=== PATIENT | male | born 1960 | race Caucasian/White ===

== ENCOUNTER 2023-05-27 10:14 | Outpatient (CLI) | payer BC, SELFPAY ==
[2023-05-27 10:43] LABS: Basophils Absolute Auto 0.1 K/mm3 (0.0-0.1); Basophils Percent Auto 0.8 % (0.2-1.2); Eosinophils Absolute Auto 0.6 K/mm3 (0-0.3); Eosinophils Percent Auto 9.3 % (0-4.4); Hematocrit 41.5 % (42.0-52.0); Hemoglobin 14.4 g/dL (14.0-18.0); Immature Granulocyte Absolute 0.02 K/mm3 (0.00-0.031); Immature Granulocyte Percent A 0.3 % (0-0.5); Lymphocytes Absolute Auto 1.99 K/mm3 (0.9-3.2); Lymphocytes Percent Auto 30.2 % (18.3-44.2); Mean Corpuscular HGB Conc 34.7 g/dl (32-36); Mean Corpuscular Hemoglobin 30.7 pg (26-34); Mean Corpuscular Volume 88.5 fl (80-100); Mean Platelet Volume 8.8 fl (7.4-10.4); Monocytes Absolute Auto 0.6 K/mm3 (0.1-0.6); Monocytes Percent Auto 9.4 % (2.6-8.5); Neutrophils Absolute Auto 3.3 K/mm3 (1.3-6.7); Platelet Count Result 257 k/mm3 (150-375); Red Blood Count 4.69 M/mm3 (4.6-6.20); Red Cell Distribution Width 12.6 % (11.5-14.5); White Blood Count 6.6 K/mm3 (4.5-10.0)
[2023-05-27 10:52] LABS: Alanine Aminotransferase 44 U/L (6-50); Albumin Level 4.2 g/dL (3.5-5.1); Alkaline Phosphatase 57 U/L (38-126); Anion Gap 7 mmol/L (8-16); Aspartate Amino Transferase 35 U/L (17-59); Bilirubin,Total 0.6 mg/dL (0.2-1.3); Blood Urea Nitrogen 15 mg/dL (9-20); Calcium 9.2 mg/dL (8.4-10.2); Carbon Dioxide 28 mmol/L (22-30); Chloride 106 mmol/L (98-107); Cholesterol 147 mg/dL (0-200); Estimated Glomerular Filt Rate > 60; Glucose 93 mg/dL (65-110); HDL Direct 42 mg/dL; Magnesium 1.7 mg/dL (1.6-2.3); Potassium 4.1 mmol/L (3.4-5.0); Sodium 141 mmol/L (137-145); Triglycerides 134 mg/dL (<150)
[2023-05-27 11:03] LABS: LDL Cholesterol Direct 77 mg/dL
[2023-05-27 11:12] LABS: Free T4 Free Thyroxine 0.89 ng/mL (0.78-2.19)
[2023-05-27 11:22] LABS: Thyroid Stimulating Hormone 0.636 uIU/mL (0.465-4.680)
== END 2023-05-27 10:15 | disposition home or self-care (01) ==
LOC: ANHLAB 10:23
PROVIDERS: PCP Internal Medicine; Visit Provider Internal Medicine
DX: E78.00 Pure hypercholesterolemia, unspecified (principal); K21.9 Gastro-esophageal reflux disease without esophagitis; I10 Essential (primary) hypertension
CPT/HCPCS: 36415; 80053; 80061; 82607; 83735; 84439; 84443; 85025

== ENCOUNTER 2023-11-24 10:05 | Outpatient (CLI) | payer BC, SELFPAY ==
[2023-11-24 11:15] LABS: Basophils Percent Auto 0.5 % (0.2-1.2); Eosinophils Absolute Auto 0.4 K/mm3 (0-0.3); Hematocrit 40.4 % (42.0-52.0); Hemoglobin 14.3 g/dL (14.0-18.0); Immature Granulocyte Absolute 0.01 K/mm3 (0.00-0.031); Immature Granulocyte Percent A 0.2 % (0-0.5); Lymphocytes Percent Auto 30.2 % (18.3-44.2); Mean Corpuscular HGB Conc 35.4 g/dl (32-36); Mean Corpuscular Hemoglobin 30.9 pg (26-34); Mean Corpuscular Volume 87.3 fl (80-100); Mean Platelet Volume 9.1 fl (7.4-10.4); Monocytes Absolute Auto 0.6 K/mm3 (0.1-0.6); Monocytes Percent Auto 9.2 % (2.6-8.5); Neutrophils Absolute Auto 3.4 K/mm3 (1.3-6.7); Neutrophils Percent Auto 53.9 % (45.5-73.1); Platelet Count Result 259 k/mm3 (150-375); Red Blood Count 4.63 M/mm3 (4.6-6.20); Red Cell Distribution Width 12.4 % (11.5-14.5); White Blood Count 6.3 K/mm3 (4.5-10.0)
[2023-11-24 11:25] LABS: Alanine Aminotransferase 31 U/L (6-50); Albumin Level 4.5 g/dL (3.5-5.1); Alkaline Phosphatase 56 U/L (38-126); Anion Gap 9 mmol/L (4-12); Aspartate Amino Transferase 31 U/L (17-59); Bilirubin,Total 0.7 mg/dL (0.2-1.3); Blood Urea Nitrogen 17 mg/dL (9-20); Calcium 9.1 mg/dL (8.4-10.2); Carbon Dioxide 25 mmol/L (22-30); Chloride 107 mmol/L (98-107); Cholesterol 138 mg/dL (0-200); Estimated Glomerular Filt Rate > 60; Glucose 89 mg/dL (65-110); HDL Direct 47 mg/dL; Magnesium 1.9 mg/dL (1.6-2.3); Potassium 3.9 mmol/L (3.4-5.0); Sodium 141 mmol/L (137-145); Triglycerides 136 mg/dL (<150)
[2023-11-24 11:37] LABS: LDL Cholesterol Direct 76 mg/dL
[2023-11-24 11:56] LABS: Prostate Specific Antigen 3.2 ng/mL (< OR = 4.0); Thyroid Stimulating Hormone 0.999 uIU/mL (0.465-4.680)
[2023-11-24 12:05] LABS: Free T4 Free Thyroxine 0.75 ng/mL (0.78-2.19)
== END 2023-11-24 10:06 | disposition home or self-care (01) ==
LOC: ANHLAB 10:08
PROVIDERS: PCP Internal Medicine; Visit Provider Internal Medicine
DX: N42.9 Disorder of prostate, unspecified (principal); E78.00 Pure hypercholesterolemia, unspecified; K21.9 Gastro-esophageal reflux disease without esophagitis; I10 Essential (primary) hypertension
CPT/HCPCS: 36415; 80053; 80061; 82607; 83735; 84153; 84439; 84443; 85025

== ENCOUNTER 2024-10-12 10:26 | Outpatient (CLI) | payer OTHER, SELFPAY ==
--- OUTSIDE RECORDS SUMMARY | 2024-10-12 10:32 | XMS_ITS | Clinical Summary ---
Author Organization [facility] Address [address] [place] [address] Care Team Providers Care Gun Fertil[employer] Name Role Phone Sander Spann MD Primary Care Provider Allergies Active Allergy Reactions Criticality Noted Date Comments Ibuprofen Other (See comments) Low 08/17/2021 Sinus congestion Medications simvastatin (ZOCOR) 40 mg tablet Take 1 tablet (40 mg total) by mouth nightly Active zolpidem (AMBIEN) 10 mg tabletIndicatio ns:Sleep-Onset Insomnia Take 0.5 tablets (5 mg total) by mouth nightly as needed for sleep Active omeprazole (PriLOSEC) 20 mg capsule Take 1 capsule (20 mg total) by mouth daily Active diphenhydrAMINE (BENADRYL) 25 mg capsule Take 1 tablet/capsule (25 mg total) by mouth every 6 (six) hours as needed for allergies Active Breo Ellipta 200-25 mcg/dose diskus inhaler 2 Active LORazepam (ATIVAN) 1 mg tablet Take by mouth 3 (three) times a day as needed 2 Active ipratropium-alb uteroL (DUO-NEB) 0.5-2.5 mg/3 mL nebulizer solution USE 1 VIAL IN NEBULIZER EVERY 4 HOURS NEEDED 2 Active albuterol HFA (PROVENTIL HFA,VENTOLIN HFA,PROAIR HFA) 90 mcg/actuation inhaler Inhale 2 puffs 2 Active melatonin 5 mg tablet 1 tablet (5 mg total) daily Active fexofenadine (NARCISO) 180 mg tablet Take 1 tablet (180 mg total) by mouth daily Active Active Problems Problem Noted Date Diagnosed Date Aortic root dilation Assessment & Plan (08/25/2022 2:40 PM CDT): Incidental finding on stress ECHO 08/2021. ECHO pending from today. His SBP is marginal and on repeat, I have asked that he monitor this at home and notify us of results in 1-2 weeks. We reviewed activity restrictions refraining from activities that increase intrathoracic pressure. Pending ECHO results will plan one year follow up ECHO same day with Dr. Lopez. Surgical History Surgery Date Site/Laterality Comments ANKLE SURGERY Left Tendon SEPTOPLASTY 02/19/2018 - 03/21/2018 COLONOSCOPY UPPER GASTROINTESTINAL ENDOSCOPY WISDOM TOOTH EXTRACTION Medical History Medical History Date Comments Hyperlipidemia Chronic sinus infection Sleep apnea Sleep Study 01/08 18; CPAP it works for me GERD (gastroesophageal reflux disease) Dysphagia Schatzki's ring Asthma Aortic root dilation Family History Medical History Relation Name Comments Cancer Father Hypertension Father Cancer Mother Hypertension Mother Relation Name Status Comments Father Mother Social History Tobacco Use Types Packs/Day Years Used Date Smoking Tobacco: Never Smokeless Tobacco: Never Tobacco Cessation:Counseling Given: Not Answered Alcohol Use Standard Drinks/Week Comments Yes 0 (1 standard drink = 0.6 oz pur e alcohol) rarely AUDIT-C Answer Date Recorded Q1: How often do you have a drink containing alc ohol? 2-3 times a week 02/18/2022 Q2: How many drinks containi ng alcohol do you have on a typical day when you are drinking? 1 or 2 02/18/2022 Frequency of Binge Drinking Not on file 01/22 Sex and Gender Information Value Date Recorded Sex Assigned at Not on file Legal Sex Male 8:24 AM [employer] Gender Identity Not on file Sexual Orientation Not on file Obstetrics History Last Filed Vital Signs Vital Sign Reading Time Taken Comments Blood Pressure 138/86 08/25/2022 2:09 PM CDT Pulse 66 08/25/2022 2:09 PM CDT Temperature 36 C (96.8 F) 02/18/2022 9:20 AM CDT Respiratory Rate 16 02/18/2022 9:40 AM CDT Oxygen Saturation 98% 08/25/2022 2:09 PM CDT Inhaled Oxygen Concentration - - Weight 68.2 kg (150 lb 6.4 oz) 08/25/2022 2:09 P M CDT Height 172.7 cm (5' 8 ) 08/25/2022 2:09 PM CDT Body Mass Index 22.87 08/25/2022 2:09 PM CDT Plan of Treatment Health Maintenance Due Date Last Done Comments Colon Cancer Screening-Colonoscopy 1961 Depression Screening 1960 Hepatitis C Screening 1961 DTaP/Tdap/Td Vaccine (1 - Tdap) 1972 Regular Well Visit/Exam 18-64 08/25/1979 Pneumococcal vaccine <65 (1 of 2 - PCV) 1980 Zoster Vaccine (2 of 2) 06/23/2021 04/28/2021 Covid-19 Vaccine (3 - 2023-2 5 season) 2024 04/16/2021, 07/26/2020 Prostate Cancer Screening-PSA 11/17/2024, 09/17/2022, 12/30/2021, Additional history exists Influenza Vaccine (Season Ended) 2025 01/23/2022, 04/16/2021, 03/06/2020, Additional history exists Hepatitis B Screening Completed 09/09/2015 , 07/06/2015, 03/06/2015 Medical Devices Implanted Type Area Ad Compositor Device Identifier Shelf Expiration Date Model / Serial / Lot Intersect Ent 88057 Propel 4mm 16mm Steroid Release Zip Tie 370 Mcg Mini Implant - [id number] Implanted:Qty: 1 on 04/13/2018 by Martell Daniel MD at [facility] Left: Nose Intersect Ent 07/29/2019 [id number] / / [id number] Intersect Ent 20826 Propel 4mm 16mm Steroid Release Zip Tie 370 Mcg Mini Implant - [id number] Implanted:Qty: 1 on 04/13/2018 by Martell Daniel MD at [facility] Right: Nose Intersect Ent 07/29/2019 [id number] / / [id number] Procedures Procedure Name Priority Date/Time Associated Diagnosis Comments PSA DIAGNOSTIC Routine 11/17/2022 6:26 AM CDT from Last 3 Months or Most Recently Relevant to Health Maintenance Results * PSA diagnostic (11/17/2022 6:26 AM CDT) PSA-Total 2.39 <=5.40 ng/mL [facility] Comment: Interpretive Data AGE SEX REFERENCE INTERVAL 0 minutes-150 years Female None 0 minutes-49 years Male None 50-59 years Male 0-3.90 60-69 years Male 0-5.40 70-79 years Male 0-6.20 80-150 years Male 0-6.20 The [place] PSA Total assay procedure was used. Results from different manufacturers or methods may not be comparable. Serial testing should be performed using the same method. Current interpretive data last revised 21. Blood 11/17/2022 6:26 AM CDT 11/17/2022 7:21 AM CDT us Sander Spann MD LAB BLOOD ORDERABLES F inal Result [facility] [id number] [facility] Department [place] [address] from Last 3 Months or Most Recently Relevant to Health Maintenance Insurance [facility] [employer] Address: [facility] [address] [place] [address] [employer] Address: [facility] [id number] [place] [address] Advance Directives For more information, please contact: [phone] * Full Code (Latest Code Status on File) Date Activated Date Inactivated Comments 02/18/2022 8:06 AM 02/18/2022 2:02 PM Care Teams Gun Fertilizer Relationship Specialty Start Date End Date Sander Spann MD [address] [facility] [address] [place] [address] PCP - General Internal Medicine 06/02/21
--- OUTSIDE RECORDS SUMMARY | 2024-10-12 10:32 | XMS_ITS | Clinical Summary ---
Author Organization [facility] on Address [address] [facility] [place] [address] Phone Care Team Providers Care Labor Service Representative Name Role Phone Sander Spann MD Primary Care Provider [phone] Allergies No known active allergies Medications fluticasone furoate-vilante roL (BREO ELLIPTA) 200-25 mcg/dose Disk with Device INHALE 1 PUFF BY MOUTH DAILY. RINSE MOUTH AFTER USE. 60 Each 5 09/04/2024 4:13 PM CDT 4 Active simvastatin (ZOCOR) 40 mg tablet Take 40 mg by mouth daily at bedtime. Active meclizine (ANTIVERT) 25 mg tablet Take 1 Tablet (25 mg) by mouth every 6 hours as needed for Dizziness. 90 Tablet 1 04/15/2024 7:14 PM CLAM SHUCKER 4 Active ondansetron (ZOFRAN ODT) 4 mg Tablet, Rapid Dissolve Take 1 Tablet (4 mg) by mouth every 8 hours as needed for Nausea/Emesis . Dissolve tablet on top of tongue, then swallow with saliva. 15 Tablet 04/15/2024 7:14 PM CLAM SHUCKER 4 Active meclizine (ANTIVERT) 25 mg tablet Take 1 Tablet (25 mg) by mouth 3 times daily. 30 Tablet 3 06/11/2024 4:22 PM CLAM SHUCKER 5 Active zolpidem (AMBIEN) 10 mg tablet TAKE 1 TABLET BY MOUTH AT BEDTIME 30 Tablet 2 08/06/2024 5:33 PM CDT 5 Active rosuvastatin (CRESTOR) 20 mg tablet Take 1 Tablet (20 mg) by mouth daily at bedtime. 90 Tablet 3 06/17/2024 4:48 PM CLAM SHUCKER 5 Active LORazepam (ATIVAN) 1 mg tablet Take 1 Tablet (1 mg) by mouth 3 times daily as needed for anxiety. 90 Tablet 2 10/04/2024 12:41 PM CDT 5 Active zolpidem (AMBIEN) 10 mg tablet Take 1 Tablet (10 mg) by mouth daily at bedtime. 30 Tablet 2 10/04/2024 12:41 PM CDT 5 Active benzonatate (TESSALON) 200 mg capsule Take 1 Capsule (200 mg) by mouth 3 times daily. 30 Capsule 10/04/2024 12:41 PM CDT 5 Active azithromycin (Zithromax Z-Mick) 250 mg tablet Take 2 Tablets (500 mg) by mouth daily for 1 day, THEN 1 Tablet (250 mg) daily for 4 days. 6 Tablet 10/10/2024 7:10 PM CDT 5 10/16/19 25 Active zolpidem (AMBIEN) 10 mg tablet Take 1 Tablet (10 mg) by mouth daily at bedtime. 30 Tablet 2 09/04/2024 4:13 PM CDT 5 10/05/19 25 Discontinu ed(Reorder ) Active Problems Problem Noted Date Diagnosed Date Vertigo 04/14/2024 Ataxia 04/14/2024 Dyslipidemia 04/14/2024 AAA (abdominal aortic aneurysm) 04/14/2024 Mild intermittent asthma without complication Hypokalemia 04/14/2024 Aneurysm, 5 mm right posterior communicating art shelley 04/14/2024 Encounters Date Type Department Care Team Description 10/03/2024 12:00 PM CDT - 10/03/2024 11:59 PM CDT Hospital Encounter [facility] [address] [place] [address] Babak Valdez, DO Discharge Disposition: Home or Self Care 10/03/2024 9:51 AM CDT Anesthesia Event [facility] [address] [place] [address] Tabitha Jimenez MD 10/03/2024 6:57 AM CDT - 10/03/2024 3:00 PM CDT Hospital Encounter [facility] [address] [place] [address] Babak Valdez, DO [address], [facility], [facility] Follow-up exam Discharge Disposition: Home or Self Care 09/24/2024 External Device Data ST[facility] ABSTRACTION Provider, Abstract 09/24/2024 External Device Data ST[facility] ABSTRACTION Provider, Abstract 09/17/2024 External Device Data STL ABSTRACTION Provider, Abstract 08/20/2024 External Device Data STL ABSTRACTION Provider, Abstract 08/20/2024 External Device Data STL ABSTRACTION Provider, Abstract 08/13/2024 External Device Data STL ABSTRACTION Provider, Abstract from Last 3 Months Family History Medical History Relation Name Comments Hypertension Mother Relation Name Status Comments Mother Social History Tobacco Use Types Packs/Day Years Used Date Smoking Tobacco: Never Smokeless Tobacco: Never Tobacco Cessation:Counseling Given: Not Answered Alcohol Use Standard Drinks/Week Comments Not Currently 0 (1 standard drink = 0.6 oz pur e alcohol) Feeling Safe Answer Date Recorded Are you in a relationship wi th someone who hurts you emotionally and/or physically? No 05/02/2024 Sex and Gender Information Value Date Recorded Sex Assigned at Not on file Legal Sex Male 12:46 PM CDT Gender Identity Not on file Sexual Orientation Not on file Last Filed Vital Signs Vital Sign Reading Time Taken Comments Blood Pressure 147/85 10/03/2024 1:30 PM CDT Pulse 82 10/03/2024 1:30 PM CDT Temperature 36.1 C (96.9 F) 10/03/2024 11:16 AM CDT Respiratory Rate 21 06/07/2024 8:00 AM CLAM SHUCKER Oxygen Saturation 97% 10/03/2024 1:30 PM CDT Inhaled Oxygen Concentration - - Weight 73.1 kg (161 lb 3.2 oz) 10/03/2024 7:09 A M CDT Height 172.7 cm (5' 8 ) 10/03/2024 7:09 AM CDT Body Mass Index 24.51 10/03/2024 7:09 AM CDT Plan of Treatment Health Maintenance Due Date Last Done Comments DTAP/TDAP/TD VACCINES (1 - Tdap) 1980 COLORECTAL SCREENING 2006 Colorectal Cancer Screening 2006 FIT-DNA Q 3 years 2006 FIT/FOBT Q 1 year 2006 Flex Sig/CT Colonography Q 5 years 2006 ZOSTER VACCINE (2 of 2) 06/23/2021 04/28/2021 RSV VACCINE (60+ or ) (1 - Risk 60-74 years 1-dose series) 2021 INFLUENZA VACCINE Completed 02/17/2024, , 04/16/2021 Medical Devices Implanted Type Area Boiler Tester Device Identifier Shelf Expiration Date Model / Serial / Lot Coil-06/06/2024 Implanted:Qty: 1 on 06/06/2024 by Babak Valdez DO Coil Right: Brain 07/20/2027 [id number] / / [id number] Description:[employer] microinte rvention hydroframe 10 embo coil 4mm x 8cm implanted into right ICA on 06/06/2024 Coil-06/06/2024 Implanted:Qty: 1 on 06/06/2024 by Babak Valdez DO Coil Right: Brain 08/20/2027 [id number] / / [id number] Description:TERUMO HYDROSOFT 10 3MM X 6CM COIL IMPLANTED INTO RIGHT ICA ON 06/06/[address]TIM VALDEZ Coil-06/06/2024 Implanted:Qty: 1 on 06/06/2024 by Babak Valdez DO Coil Right: Brain 02/18/2029 [id number] / / [id number] 2 Procedures Procedure Name Priority Date/Time Associated Diagnosis Comments MRA HEAD W WO CONTRAST Routine 10/03/2024 1:03 PM CDT Follow-up exam IR ARTERIOGRAM HEAD Routine 10/03/2024 1 0:51 AM CDT Follow-up exam ME ANES INSERT ENDOTRACHEAL AIRWAY Routine 10/03/2024 10:01 AM CDT BASIC METABOLIC PANEL Stat 10/03/2024 7:17 AM CDT PROTIME-INR Stat 10/03/2024 7:17 AM CDT PTT Stat 10/03/2024 7:17 AM CDT CBC WITH DIFFERENTIAL Stat 10/03/2024 7:17 AM CDT from Last 3 Months Results * MRA HEAD W WO CONTRAST (10/03/2024 1:03 PM CDT) Anatomical Region Laterality Modality Head Magnetic Resonan ce 10/03/2024 1:04 PM CDT Impressions 10/03/2024 8:55 PM CDT IMPRESSION: Redemonstration of coil mass in known right posterior communicating artery aneurysm with near complete obliteration of the aneurysm fundus though there is focal residual opacification of the within the superior aspect of the coil mass within the aneurysm fundus measuring up to approximately 2.3 mm. These findings are in keeping with cerebral angiogram earlier same date. 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 FINDINGS: Redemonstration of coil mass in known right posterior communicating artery aneurysm. Again, there is near complete obliteration of the aneurysm fundus though there is focal residual opacification within of the superior aspect of the coil mass within the aneurysm fundus measuring approximately 2.3 mm AP by 1.9 mm craniocaudal by 1.3 mm transverse. Right Anterior Circulation: The imaged right cervical ICA is tortuous but otherwise patent. The intracranial ICA is widely patent. The proximal right ophthalmic artery is patent. A prominent posterior communicating artery is present with near physiology of the SCHEDULING COORDINATOR. The ICA terminus, M1, MCA bifurcation and distal MCA branches are without appreciable abnormality. The A1, A1-A2 junction and distal WARNER branches are without appreciable abnormality. A small anterior communicating artery is present. Left Anterior Circulation: The imaged left cervical ICA is widely patent. The intracranial ICA is widely patent. The proximal left ophthalmic artery is patent. A moderately sized posterior communicating artery is present. The ICA terminus, M1, MCA bifurcation and distal MCA branches are without appreciable abnormality. The A1, A1-A2 junction and distal WARNER branches are without appreciable abnormality. Posterior Circulation: The left vertebral artery is slightly larger than the right. The imaged extracranial vertebral arteries are widely patent. The intracranial right vertebral artery is widely patent. No appreciable right PICA. Question of a right AICA-PICA complex. The intracranial left vertebral artery is widely patent. The left PICA is patent. The vertebrobasilar confluence, basilar trunk and quadrification are without significant abnormality. The right P1 is small in caliber in keeping with near physiology of the right SCHEDULING COORDINATOR. The SCAs and jinriksha driver are otherwise patent. 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 FINDINGS: Redemonstration of coil mass in known right posterior communicating artery aneurysm. Again, there is near complete obliteration of the aneurysm fundus though there is focal residual opacification within of the superior aspect of the coil mass within the aneurysm fundus measuring approximately 2.3 mm AP by 1.9 mm craniocaudal by 1.3 mm transverse. Right Anterior Circulation: The imaged right cervical ICA is tortuous but otherwise patent. The intracranial ICA is widely patent. The proximal right ophthalmic artery is patent. A prominent posterior communicating artery is present with near physiology of the SCHEDULING COORDINATOR. The ICA terminus, M1, MCA bifurcation and distal MCA branches are without appreciable abnormality. The A1, A1-A2 junction and distal WARNER branches are without appreciable abnormality. A small anterior communicating artery is present. Left Anterior Circulation: The imaged left cervical ICA is widely patent. The intracranial ICA is widely patent. The proximal left ophthalmic artery is patent. A moderately sized posterior communicating artery is present. The ICA terminus, M1, MCA bifurcation and distal MCA branches are without appreciable abnormality. The A1, A1-A2 junction and distal WARNER branches are without appreciable abnormality. Posterior Circulation: The left vertebral artery is slightly larger than the right. The imaged extracranial vertebral arteries are widely patent. The intracranial right vertebral artery is widely patent. No appreciable right PICA. Question of a right AICA-PICA complex. The intracranial left vertebral artery is widely patent. The left PICA is patent. The vertebrobasilar confluence, basilar trunk and quadrification are without significant abnormality. The right P1 is small in caliber in keeping with near physiology of the right SCHEDULING COORDINATOR. The SCAs and jinriksha driver are otherwise patent. IMPRESSION: Redemonstration of coil mass in known right posterior communicating artery aneurysm with near complete obliteration of the aneurysm fundus though there is focal residual opacification of the within the superior aspect of the coil mass within the aneurysm fundus measuring up to approximately 2.3 mm. These findings are in keeping with cerebral angiogram earlier same date. DICTATION LOCATION: Location [address] [place] [address] Babak Valdez DO MR ORDERABLES Final Result * IR ARTERIOGRAM HEAD (10/03/2024 10:51 AM CDT) Anatomical Region Laterality Modality Head X-Ray Angiograph y 10/03/2024 10:5 1 AM CDT Impressions 10/07/2024 6:04 AM CDT IMPRESSION: Near complete obliteration of known right posterior communicating artery aneurysm post coil embolization though with slight interval coil compaction with focal residual opacification of the superior medial aspect of the aneurysm fundus within the coil mass. DICTATION LOCATION: Location [address] [place] [address] Narrative 10/07/2024 6:04 AM CDT DIAGNOSTIC CEREBRAL ANGIOGRAM DATE: 10/03/2024 10:51 AM HISTORY: Mr Doty is a 63 year old that presented in March 2024 with dizziness. On evaluation a 5 mm right posterior communicating artery was discovered. He was referred to us by neurosurgery and ultimately underwent elective coil embolization of his aneurysm on 06/06/2024. He has been doing well. He presents today for routine followup angiography. Cerebral angiogram was discussed with patient and he wishes to proceed. PHYSICIAN: Dr Valdez ANESTHESIA/SEDATION: General endotracheal anesthesia PHYSICIAN SUPERVISED ANESTHESIA TIME: Please refer to anesthesia documentation. ESTIMATED BLOOD LOSS: Less than 10 ml COMPLICATIONS: No immediate ACCESS: Right radial artery HEMOSTASIS: Radial compression band CONTRAST USE: 40 ml of Isovue 300 FLUOROSCOPY TIME: 3.6 minutes REFERENCE AIR KERMA: 231 mGy PROCEDURES: 1. Diagnostic cerebral angiogram DIAGNOSTIC ACCESS DEVICES: Sheath: 5F Radial sheath Diagnostic Catheter: 5 [place] Blake III Diagnostic Wire: 035 Glidewire Microcatheter: None Microwire: None TECHNIQUE: After discussion of the risks, benefits and alternatives of diagnostic cerebral angiography, informed consent was obtained from the patient. Specific risks discussed included but not limited to stroke, , transient and permanent neurological deficits, vascular injury, radiation induced injury, infection, bleeding, and hematoma formation. The patient was then brought to the angiography suite and placed in a supine position. A standard timeout was performed prior to the procedure. After hemodynamic monitoring was established, general endotracheal anesthesia was performed by the anesthesia service. Prior to the procedure, a Barbeau test was performed with continuous pulse oximetry to confirm an intact palmar arch. Sterile prepping and draping of the right wrist for radial access was performed. The right radial artery was evaluated with ultrasound, local anesthesia with 1% lidocaine and accessed via the Seldinger technique with subsequent placement of a 5F 23 cm radial sheath. The sheath was then flushed with heparinized saline and a radial artery cocktail of heparin, verapamil and nitroglycerin. The patient was then systemically anticoagulated with IV heparin. Standard diagnostic catheters and wires were then fluoroscopically advanced for selective catheterization and angiographic study of the following vessels: Right Brachiocephalic Vascular Family: *Right internal carotid artery, AP and lateral projection angiograms, intracranial views and rotational angiography with three-dimensional reconstructions post-processing under concurrent supervision and reviewed at a separate workstation. CLINICAL INDICATIONS FOR POSTPROCESSED 3-D ANGIOGRAMS performed in this study were to better define complex anatomic vascular relationships for treatment planning purposes. COMPARISON STUDY: Cerebral angiogram with intracranial aneurysm treatment 06/06/2024, CTA head and neck 04/14/2024 FINDINGS: Right Internal Carotid Artery Angiography: DSA of the right anterior circulation was performed from a selective right internal carotid artery injection. The images cervical ICA is tortuous but otherwise widely patent. The petrous, cavernous and supraclinoid ICA segments are widely patent. The ophthalmic artery is patent. There are prominent posterior communicating artery with suggestion of near physiology of the right SCHEDULING COORDINATOR. Redemonstration known right posterior communicating artery aneurysm post coil embolization. There complete obliteration of the aneurysm fundus though there has been slight interval coil compaction with residual opacification of the aneurysm fundus at the superior medial aspect measuring approximately 3 mm AP x 2 mm transverse x 1.5 mm craniocaudal. The anterior choroidal artery is patent. The ICA terminus, M1, MCA bifurcation and distal MCA branches are without significant abnormality. The A1, A1-A2 junction and distal WARNER branches are without significant abnormality. Suggestion of a small anterior communicating artery. The capillary and venous phases are without significant abnormality. Venous drainage of the right anterior circulation is predominantly via the right transverse sigmoid sinus. The superior sagittal sinus, right internal cerebral vein and straight sinus are widely patent. There is opacification of a right vein of Rigoberto. Additional opacification of the right sphenoparietal sinus, right cavernous sinus, right pterygoid plexus and right inferior petrosal sinus. The above findings were confirmed on 3-D rotational angiography evaluated at a separate workstation. POST-PROCEDURE: After all imaging was reviewed and felt adequate for evaluation, all catheters were removed from the patient. Heparin was reversed with the appropriate amount of protamine. The sheath was subsequently removed and patent hemostasis was achieved using a radial compression band. The reverse Barbeau test was used to confirm patent hemostasis with continuous pulse oximetry. Dr. Valdez was present for the entire procedure. COMPLICATIONS: No immediate complications. Procedure Note Babak Valdez, DO - 10/07/2024 DIAGNOSTIC CEREBRAL ANGIOGRAM DATE: 10/03/2024 10:51 AM HISTORY: Mr Doty is a 63 year old that presented in March 2024 with dizziness. On evaluation a 5 mm right posterior communicating artery was discovered. He was referred to us by neurosurgery and ultimately underwent elective coil embolization of his aneurysm on 06/06/2024. He has been doing well. He presents today for routine followup angiography. Cerebral angiogram was discussed with patient and he wishes to proceed. PHYSICIAN: Dr Valdez ANESTHESIA/SEDATION: General endotracheal anesthesia PHYSICIAN SUPERVISED ANESTHESIA TIME: Please refer to anesthesia documentation. ESTIMATED BLOOD LOSS: Less than 10 ml COMPLICATIONS: No immediate ACCESS: Right radial artery HEMOSTASIS: Radial compression band CONTRAST USE: 40 ml of Isovue 300 FLUOROSCOPY TIME: 3.6 minutes REFERENCE AIR KERMA: 231 mGy PROCEDURES: 1. Diagnostic cerebral angiogram DIAGNOSTIC ACCESS DEVICES: Sheath: 5F Radial sheath Diagnostic Catheter: 5 [place] Blake III Diagnostic Wire: 035 Glidewire Microcatheter: None Microwire: None TECHNIQUE: After discussion of the risks, benefits and alternatives of diagnostic cerebral angiography, informed consent was obtained from the patient. Specific risks discussed included but not limited to stroke, , transient and permanent neurological deficits, vascular injury, radiation induced injury, infection, bleeding, and hematoma formation. The patient was then brought to the angiography suite and placed in a supine position. A standard timeout was performed prior to the procedure. After hemodynamic monitoring was established, general endotracheal anesthesia was performed by the anesthesia service. Prior to the procedure, a Barbeau test was performed with continuous pulse oximetry to confirm an intact palmar arch. Sterile prepping and draping of the right wrist for radial access was performed. The right radial artery was evaluated with ultrasound, local anesthesia with 1% lidocaine and accessed via the Seldinger technique with subsequent placement of a 5F 23 cm radial sheath. The sheath was then flushed with heparinized saline and a radial artery cocktail of heparin, verapamil and nitroglycerin. The patient was then systemically anticoagulated with IV heparin. Standard diagnostic catheters and wires were then fluoroscopically advanced for selective catheterization and angiographic study of the following vessels: Right Brachiocephalic Vascular Family: *Right internal carotid artery, AP and lateral projection angiograms, intracranial views and rotational angiography with three-dimensional reconstructions post-processing under concurrent supervision and reviewed at a separate workstation. CLINICAL INDICATIONS FOR POSTPROCESSED 3-D ANGIOGRAMS performed in this study were to better define complex anatomic vascular relationships for treatment planning purposes. COMPARISON STUDY: Cerebral angiogram with intracranial aneurysm treatment 06/06/2024, CTA head and neck 04/14/2024 FINDINGS: Right Internal Carotid Artery Angiography: DSA of the right anterior circulation was performed from a selective right internal carotid artery injection. The images cervical ICA is tortuous but otherwise widely patent. The petrous, cavernous and supraclinoid ICA segments are widely patent. The ophthalmic artery is patent. There are prominent posterior communicating artery with suggestion of near physiology of the right SCHEDULING COORDINATOR. Redemonstration known right posterior communicating artery aneurysm post coil embolization. There complete obliteration of the aneurysm fundus though there has been slight interval coil compaction with residual opacification of the aneurysm fundus at the superior medial aspect measuring approximately 3 mm AP x 2 mm transverse x 1.5 mm craniocaudal. The anterior choroidal artery is patent. The ICA terminus, M1, MCA bifurcation and distal MCA branches are without significant abnormality. The A1, A1-A2 junction and distal WARNER branches are without significant abnormality. Suggestion of a small anterior communicating artery. The capillary and venous phases are without significant abnormality. Venous drainage of the right anterior circulation is predominantly via the right transverse sigmoid sinus. The superior sagittal sinus, right internal cerebral vein and straight sinus are widely patent. There is opacification of a right vein of Rigoberto. Additional opacification of the right sphenoparietal sinus, right cavernous sinus, right pterygoid plexus and right inferior petrosal sinus. The above findings were confirmed on 3-D rotational angiography evaluated at a separate workstation. POST-PROCEDURE: After all imaging was reviewed and felt adequate for evaluation, all catheters were removed from the patient. Heparin was reversed with the appropriate amount of protamine. The sheath was subsequently removed and patent hemostasis was achieved using a radial compression band. The reverse Barbeau test was used to confirm patent hemostasis with continuous pulse oximetry. Dr. Valdez was present for the entire procedure. COMPLICATIONS: No immediate complications. IMPRESSION: Near complete obliteration of known right posterior communicating artery aneurysm post coil embolization though with slight interval coil compaction with focal residual opacification of the superior medial aspect of the aneurysm fundus within the coil mass. DICTATION LOCATION: Location 1 [facility] Babak Valdez DO IR ORDERABLES Final Result * ME ANES INSERT ENDOTRACHEAL AIRWAY (10/03/2024 10:01 AM CDT) Narrative Joselin Alvarez AA-C - 10/03/2024 10:01 AM CDT Joselin Alvarez AA-C 10/03/2024 10:15 AM Airway Date/Time: 10/03/2024 10:01 AM Location: OR Plan: routine intubation Patient Identity Confirmed by: Verbally with patient and armband Airway: not difficult Staffing Performed: OPERATIONS LEAD/CAA Authorized by: Haider Leone [employer] Performed by: Joselin Alvarez AA-C Indications and Patient Condition: Indications for Airway Management: Anesthesia Sedation Level: general anesthesia Preoxygenated: yes Patient Position: Sniffing Mask Difficulty Assessment: 1 - vent by mask Plan to extubate at end of case: Yes Final Airway Details: Final Airway Type: Endotracheal airway ETT Cuffed: Yes Cuff Volume (mL): 4 Technique Used for Successful ETT Placement: Direct laryngoscopy Devices/Methods Used in Placement: Curved blade and intubating stylet Blade Type: curved blade Blade Size: 4 Insertion Site: Oral ETT Size (mm): 7.0 Measured from: Teeth ETT to Teeth (cm): 23 Tube secured with: Tape Placement Verified by: auscultation, end tidal CO2 and chest rise Cormack-Lehane Classification: Grade I - full view of glottis Number of Attempts at Approach: 1 Additional Procedure Information: atraumatic and dentition unchanged Additional Comments: Lips and dentition in pre-anesthetic condition [facility] Prepost 8 PROCEDURE/MINOR SURGICAL ORDERAB LES Final Result * (ABNORMAL) CBC WITH DIFFERENTIAL (10/03/2024 7:17 AM CDT) WBC 6.5 4.0 - 9.8 K/uL 10/03/2024 7:38 AM [facility] [employer] [facility] RBC 4.51 4.50 - 5.40 M/uL 10/03/2024 7:38 AM [employer] [facility] HEMOGLOBIN 13.7 13.6 - 16.5 g/dL 10/03/2024 7:38 AM [facility] [employer] [facility] HEMATOCRIT 41.0 40.0 - 48.0 % 10/03/2024 7:38 AM [employer] [facility] MCV 90.9 82.0 - 99.0 fL 10/03/2024 7:38 AM T [employer] [facility] MCH 30.4 27.2 - 32.6 pg 10/03/2024 7:38 AM [employer] [facility] MCHC 33.4 31.5 - 35.5 g/dL 10/03/2024 7:38 AM [employer] [facility] RDW 12.8 11.5 - 14.5 % 10/03/2024 7:38 AM [employer] [facility] RDW-STDEV 42.1 37.1 - 48.7 fL 10/03/2024 7:38 AM CDT [employer] [facility] PLATELETS 266 140 - 350 K/uL 10/03/2024 7:38 AM CDT [employer] [facility] - . [place] MPV 8.8(L) 9.3 - 12.4 fL 10/03/2024 7:38 AM CDT [employer] [facility] - . [facility] NEUTROPHILS 56 % 10/03/2024 7:38 AM CDT [employer] [facility] - . [place] LYMPHOCYTES 30 % 10/03/2024 7:38 AM CDT [employer] [facility] [place] MONOCYTES 9 % 10/03/2024 7:38 AM CDT [employer] [facility] [place] EOSINOPHILS 4 % 10/03/2024 7:38 AM CDT [employer] [facility] - [facility] [place] BASOPHILS 1 % 10/03/2024 7:38 AM CDT [employer] [facility] - . [facility] IMMATURE GRANULOCYTES 0 % 10/03/2024 7:38 AM CDT [employer] [facility] - . [facility] NEUTROPHIL ABSOLUTE 3.66 1.90 - 7.00 K/uL 10/03/2024 7:38 AM CDT [employer] [facility] - . [facility] LYMPHOCYTE ABSOLUTE 1.94 0.70 - 4.50 K/uL 10/03/2024 7:38 AM CDT [employer] [facility] - . [facility] MONOCYTE ABSOLUTE 0.61 0.10 - 1.30 K/uL 10/03/2024 7:38 AM CDT [employer] [facility] - . [place] EOSINOPHIL ABSOLUTE 0.23 0.00 - 0.70 K/uL 10/03/2024 7:38 AM CDT [employer] [facility] - . [place] BASOPHILS ABSOLUTE 0.04 0.00 - 0.20 K/uL 10/03/2024 7:38 AM CDT [employer] [facility] - . [facility] IMMATURE GRANULOCYTES ABSOLUTE 0.02 0.00 - 0.03 K/uL 10/03/2024 7:38 AM T [employer] [facility] Blood Venipuncture / Unknown 10/03/2024 7:17 AM CDT 10/03/2024 7:28 AM CDT Babak Valdez DO HEMATOLOGY ORDERABLES Final Result [facility] - . [place] CLIA# [id number] [address] [place] [address] * PTT (10/03/2024 7:17 AM CDT) PTT 30.3 24.4 - 36.4 seconds 10/03/2024 7:49 AM CDT [facility] [employer] [facility] Comment: PTT Therapeutic Range: Heparin Level PTT (seconds) <0.10 units/mL <55.8 0.10 - 0.30 units/mL 55.8 - 74.3 0.30 - 0.70 units/mL* 74.3 - 111.2* 0.70 - 1.00 units/mL 111.2 - 138.9 *corresponds to therapeutic range for unfractionated heparin Blood Venipuncture / Unknown 10/03/2024 7:17 AM CDT 10/03/2024 7:28 AM CDT Babak Valdez DO HEMATOLOGY ORDERABLES Final Result [facility] [employer] [facility] [id number] [address] [place] [address] * PROTIME-INR (10/03/2024 7:17 AM CDT) PROTIME 13.5 12.7 - 15.1 Seconds 10/03/2024 7:49 AM CDT [facility] [employer] [facility] INR 1.0 0.9 - 1.1 10/03/2024 7:49 AM CDT [facility] [employer] [facility] Blood Venipuncture / Unknown 10/03/2024 7:17 AM CDT 10/03/2024 7:28 AM CDT Narrative [facility] - 10/03/2024 7:49 AM CDT INR Therapeutic Range: Adult: 2.0 - 3.0 for pulmonary embolism or prophylaxis against venous thrombosis or systemic embolization. 2.0 - 3.0 for patients with tissue heart valves. 2.5 - 3.5 for patients with mechanical heart valves or post VT. Pediatric (12 years and under): 1.5 - 3.0 Although the target range in children is not well established, INR values of 1.5 - 3.0 are recommended for most patients. Higher values have been used in children with prosthetic cardiac valves and hereditary clotting disorders. [place] (<3 days) therapeutic ranges have not been established. Babak Valdez DO HEMATOLOGY ORDERABLES Final Result [facility]# [id number] [address] [place] [address] * (ABNORMAL) BASIC METABOLIC PANEL (10/03/2024 7:17 AM CDT) SODIUM 139 136 - 145 mmol/L 10/03/2024 7:57 AM T [facility] POTASSIUM 4.3 3.5 - 5.0 mmol/L 10/03/2024 7:57 AM T [facility] Comment:Hemolysis present. R esult may be falsely elevated. CHLORIDE 106 98 - 107 mmol/L 10/03/2024 7:57 AM T [facility] CO2 21(L) 22 - 29 mmol/L 10/03/2024 7:57 AM T [facility] CALCIUM 9.2 8.6 - 10.2 mg/dL 10/03/2024 7:57 AM CDT [facility] BUN 11 8 - 23 mg/dL 10/03/2024 7:57 AM T [facility] CREATININE 0.89 0.67 - 1.17 mg/dL 10/03/2024 7:57 AM T [facility] GLUCOSE 99 74 - 99 mg/dL 10/03/2024 7:57 AM T [facility] GFR >60 >=60 mL/min/1.7 3 sq meter 10/03/2024 7:57 AM T [facility] Comment:eGFR calculated with 2020 CKD-EPI equation. Vegetarian diet, extremely high or low muscle mass, and may affect results. Cystatin C with Glomerular Filtration Rate is a suitable alternative for these patients. ANION GAP 12 8 - 16 mmol/L 10/03/2024 7:57 AM CDT [facility] Blood Venipuncture / Unknown 10/03/2024 7:17 AM CDT 10/03/2024 7:28 AM CDT us Babak Valdez DO CHEMISTRY ORDERABLES Final R esult [facility] CLIA# [id number] [address] [place] [address] from Last 3 Months Insurance RX [employer] Member Subscriber Plan / Payer (Ef fective for All Dates) Name:Jairo Doty Relation to Subscriber:Self Name:Jairo Doty Payer ID:Not on file Type:Not on file Address: [address] [address] [employer] Advance Directives For more information, please contact: [phone] * Full Code (Latest Code Status on File) Date Activated Date Inactivated Comments 06/06/2024 7:57 AM 06/07/2024 1:14 PM * Full Code Date Activated Date Inactivated Comments 04/14/2024 11:47 PM 04/15/2024 9:25 PM Care Teams Labor Service Representative Relationship Specialty Start Date End Date Sander Spann MD [address] [facility] [address] [place] [address] PCP - General Internal Medicine 06/06/24
--- OUTSIDE RECORDS SUMMARY | 2024-10-12 10:32 | XMS_ITS | Data Portability ---
Author Organization [facility] IP Address [address] [place] [id number] Care Team Providers Care Surveillance Analyst Name Role Phone DAR BETANCOURT Primary Care Provider Assessment No assessment recorded. Plan of Treatment Reminders Order Date Submit Date Provider Last Modified By Organization Details Last Modified Time Details Appointments None record ed. Lab None record ed. Referral None record ed. Procedures None record ed. Surgeries None record ed. Imaging None record ed. Medication Orders None record ed. Patient TargetsNo targets recorded. Patient InstructionsNo instructions recorded. Reason for Referral None Reported. Medical Equipment None Reported. Medications Name Sig Start Date Stop Date Status Note LastModified by Organization Details LastModified Time prednisone 10 mg tablet active Not Available Not Available No t Available cefuroxime axetil 250 mg tablet active Not Available Not Available Not Available ipratropium 0.5 mg-albuterol 3 mg (2.5 mg base)/3 mL nebulization soln active Not Available Not Available Not Available benzonatate 200 mg capsule active Not Available Not Available N ot Available hydrocodone 5 mg-acetaminophe n 325 mg tablet active Not Available Not Availa ble Not Available prednisone 5 mg tablet active Not Available Not Available Not Available promethazine 6.25 mg-codeine 10 mg/5 mL syrup active Not Available Not Available Not Available simvastatin 40 mg tablet active Not Available Not Available No t Available clobetasol 0.05 % topical ointment active Not Available Not Available Not Available cefuroxime axetil 500 mg tablet active Not Available Not Available Not Available levofloxacin 500 mg tablet active Not Available Not Availabl e Not Available zolpidem 10 mg tablet active Not Available Not Available Not Available methylprednisol one 4 mg tablets in a dose pack active Not Available Not Available No t Available fluticasone propionate 50 mcg/actuation nasal spray,suspensio n INHALE 2 PUFF IN EACH NOSTRIL EVERY DAY active Not Available Not Available No t Available Ventolin HFA 90 mcg/actuation aerosol inhaler active Not Available Not Availa ble Not Available Breo Ellipta 200 mcg-25 mcg/dose powder for inhalation active Not Available Not Availab le Not Available Vitals Date Recorded Heart rate Respiratory rate Body temperature Systolic And Diastolic Provider Name and Address Organization Details Last Updated DateTime 09/27/2018 89 /min 18 /min 98.3 [degF] 127/84 mm[Hg] Daphnie SchmidtDANILO [facility] 9 15:26:20 Date Recorded Body weight Heart rate Respiratory rate Body temperature Body mass index (BMI) Body height Systolic And Diastolic Provider Name and Address Organization Details Last Updated DateTime 9 [address]9828.6 1 g 73 /min 18 /min 97.2 [degF] 25.2 kg/m2 172.72 cm 131/90 mm[Hg] Alethea Brown LPN [facility] 9 16:29:31 Social History None recorded. Functional Status None recorded. Mental Status None recorded. Family History Nothing Reported. Medical History No medical history recorded. Past Encounters Encounter ID Performer Location Encounter Start Date Encounter Closed Date Diagnosis/Indication Diagnosis SNOMED-CT Code Diagnosis ICD10 Code Diagnosis Note [id number] Martell Daniel MD [facility] [address] [place] [address] 09/27/2018 15:13:38 10/03/2018 11:19:11 Chronic sinusitis 16560853 J32.9 [id number] Martell Daniel MD [facility] [address] [place] [address] 04/04/2019 16:20:38 04/08/2019 12:14:43 Chronic sinusitis 80897227 J32.9 continue flonase f/u 1 year Health Concerns Section Related Observation LastModified by Organization Detai ls LastModified Time None Recorded Concern Status LastModified by Organization Details LastModified Time None Recorded Advance Directives Directive None Recorded Payers Encounter Date Sequence Insurance Name Policy Number Policy Sherman Covered Member ID Sherman Member ID Guarantor Name 09/27/2018 1 MARILY [id number] Jairo Gerard [id number] Jairo Gerard 04/04/2019 [id number] Jairo Gerard [id number] Jairo Gerard Notes Date Note Type Note Provider Name and Address Organization Details Recorded Time 9 text/html Sinusitis/AllergyReporte d bypatient.Associated Symptoms:nasal discharge from both nostrils; clear drainage headaches Onset/Timing:chronic Quality:no change since last visit Duration:long standing Severity:does not limit daily activities Context:no recent upper respiratory infection;worse around pollen;worse when mowing grass Risk Factors:history of nasal polyps Alleviating factors:relief with saline nasal rinses; relief with nasal steroid ; relief with antihistamine Prior Treatmentendoscopic sinus surgery side:[place] history of chronic sinusitis he had severe sinus disease operated late 2017 doing well at this time following with allergy Martell Daniel MD [address], [place], [address], [place] 09/27/2018 15:40:55 9 text/html Pt has hx of chronic sinusitis with drainage. He had surgery for polyps last year. He is doing well with flonase. Martell Daniel MD [address], [place], [address], [place] 04/04/2019 16:38:29
--- OUTSIDE RECORDS SUMMARY | 2024-10-12 10:32 | XMS_ITS | Referral Summary ---
Author Organization [facility] Address [address] [place] [address] Care Team Providers Care Salt Grinder Name Role Phone Sander Spann MD Primary [...] up ECHO same day with Dr. Lopez. 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 Gender Identity Not on file Sexual Orientation [...] 08/25/2022 2:09 PM CDT Plan of Treatment Not on file Medical Devices Implanted Type Area Named Account Executive Device Identifier Shelf Expiration Date Model / Serial / Lot Intersect Ent [id number] Propel 4mm 16mm Steroid Release Zip Tie 370 Mcg Mini Implant - [id number] Implanted:Qty: 1 on 04/13/2018 by Martell Daniel MD at [facility] Left: Nose Intersect Ent 07/29/2019 [id number] / / [id number] Intersect Ent 10801 Propel 4mm 16mm Steroid Release Zip Tie 370 Mcg Mini Implant - [id number] Implanted:Qty: 1 on 04/13/2018 by Martell Daniel MD at [facility] Right: Nose Intersect Ent 07/29/2019 [id number] / / [id number] Procedures Procedure Name Priority Date/Time Associated Diagnosis [...] LAB BLOOD ORDERABLES F inal Result [facility] [address] [facility] [place] [address] from Last 3 Months or Most Recently Relevant to Health Maintenance Insurance [employer] [facility] [employer] Address: [facility] [id number] [place] [phone] [employer] Address: [facility] [id number] [place] [phone] Advance Directives For more information, please contact: [phone] * Full Code (Latest Code Status on File) Date Activated Date Inactivated Comments 02/18/2022 8:06 AM 02/18/2022 2:02 PM Care Teams Salt Grinder Relationship Specialty Start Date End Date Sander Spann MD [address] [facility] [address] [place] [address] PCP - General Internal Medicine 06/02/21
--- OUTSIDE RECORDS SUMMARY | 2024-10-12 10:32 | XMS_ITS | Encounter Summary ---
Author Organization [facility] Healthcare Address [address] [place] [address] Care Team Providers Care Anhydrous Ammonia Production Supervisor Name Role Phone Sander Spann MD Primary Care Provider Reason for Visit * Reason Onset Date Comments Ready to scheduled 12/14/2021 Encounter Details Date Type Department Care Team (Late st Contact Info) Description 12/14/2021 Telephone [facility] Specialty Services [address] [place] [address] Miscellaneous, Not In File Ready to scheduled Social History Tobacco Use Types Packs/Day Years Used Date Smoking Tobacco: Never Smokeless Tobacco: Never Alcohol Use Standard Drinks/Week Comments Yes 0 (1 standard drink = 0.6 oz pur e alcohol) rarely Sex and Gender Information Value Date Recorded Sex Assigned at Not on file 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
--- OUTSIDE RECORDS SUMMARY | 2024-10-12 10:32 | XMS_ITS | Clinical Summary ---
Author Organization [facility] [employer] Address [address] [facility] [place] [address] Care Team Providers Care Hotel Or Motel Cleaning Supervisor Name Role Phone Unavailable Primary Care Provider Unavailabl e Source Comments [facility] [employer],non-owned Affiliates and Associated Physician Practices is amultiple site organization consisting of ambulatory clinics and hospital sitesin [place], [place], [place] and [place]. This disclosure is being madepursuant to the Care Everywhere program and may not contain all information available regarding this patient. Last updated 18.[facility] [employer] Allergies No known active allergies Medications * Be aware that medications may not be up to date on this document. Alwaysverify current medications with the patient. atorvastatin (LIPITOR) 10 MG tablet Take 10 mg by mouth at bedtime. Active zolpidem (AMBIEN) 10 MG tablet Take 10 mg by mouth nightly as needed. Active BREO ELLIPTA 200-25 MCG/INH inhaler INL 1 PUFF PO Q DAY. UTD 0 Active simvastatin (ZOCOR) 40 MG tablet simvastatin 40 mg tablet TAKE ONE TABLET BY MOUTH EVERY DAY Active omeprazole (PRILOSEC) 20 MG capsule Take 20 mg by mouth once daily Active LORazepam (ATIVAN) 0.5 MG tablet Take 1 mg by mouth every 8 hours as needed for Anxiety Active fluconazole (DIFLUCAN) 10 MG/ML suspension Take by mouth once daily Active Active Problems Problem Noted Date Diagnosed Date Gastroesophageal reflux disease 12/10/2019 Pain in the coccyx 12/10/2019 Pure hypercholesterolemia 12/10/2019 Anxiety 09/11/2019 Obstructive sleep apnea syndrome 03/21/2018 Asthma 10/30/2017 Headache disorder 10/30/2017 Family History Medical History Relation Name Comments Hypertension Father Arthritis - Rheumatoid Mother Relation Name Status Comments Father Alive Mother Alive Social History Tobacco Use Types Packs/Day Years Used Date Smoking Tobacco: Former Smokeless Tobacco: Never Alcohol Use Standard Drinks/Week Comments Not Currently 1.7 (1 standard drink = 0.6 oz p ure alcohol) AUDIT-C Answer Date Recorded Q1: How often do you have a drink containing alc ohol? 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 Gender Identity Not on file Sexual Orientation Not on file Last Filed Vital Signs Vital Sign Reading Time Taken Comments Blood Pressure 130/80 12/10/2019 2:49 PM CDT Pulse 67 12/10/2019 2:49 PM CDT Temperature 36.2 C (97.1 F) 12/10/2019 2:49 PM CDT Respiratory Rate 20 12/10/2019 2:49 PM CDT Oxygen Saturation 95% 12/10/2019 2:49 PM CDT Inhaled Oxygen Concentration - - Weight 72 kg (158 lb 12.8 oz) 12/10/2019 2:49 PM CDT Height 172.7 cm (5' 8 ) 12/10/2019 2:49 PM CDT Body Mass Index 24.15 12/10/2019 2:49 PM CDT Plan of Treatment Health Maintenance Due Date Last Done Comments COLOGUARD (AGES 45-75) - COL ON CA SCREENING 1961 COLON MONITORING 1961 COLONOSCOPY - COLON CA SCREENING 1961 CT COLONOGRAPHY - COLON CA SCREENING 1961 Colorectal Cancer Screening 1961 FIT - COLON CA SCREENING 1961 FLEX SIG - COLON CA SCREENING 1961 HIV SCREENING 1976 HEPATITIS C SCREENING 08/20/1979 DTAP/TDAP/TD VACCINES (1 - Tdap) 1980 PNEUMOCOCCAL VACCINE 50+ (1 of 1 - PCV) 08/25/2011 ZOSTER VACCINE (1 of 2) 08/25/2011 COVID-19 VACCINE (1 - 2023-2 5 season) 2024 DEPRESSION SCREENING 05/22/2024 INFLUENZA VACCINE (Season Ended) 2025 Respiratory Syncytial Virus (RSV) Vaccine Pt: or over 60 yrs (1 - 1-dose 75+ series) 2036 HEPATITIS B VACCINE Aged Out No longe r eligible based on patient's age to complete this topic HIB VACCINE Aged Out No longer eligi ble based on patient's age to complete this topic HPV VACCINE Aged Out No longer eligi ble based on patient's age to complete this topic MENINGOCOCCAL (Group B) VACC INE SHARED DECISION-MAKING Aged Out No longer eligibl e based on patient's age to complete this topic MENINGOCOCCAL GROUPS A/C/Y/W VACCINE Aged Out No longer eligible b ased on patient's age to complete this topic Insurance [facility]
--- OUTSIDE RECORDS SUMMARY | 2024-10-12 10:32 | XMS_ITS | Data Portability ---
Author Organization [place] [facility] [employer], Main Office Address [address] [place] [address] Assessment No assessment recorded. Plan of Treatment Reminders Order Date Submit Date Provider Last Modified By Organization Details Last Modified Time Details Appointments None recorded. Lab PSA, serum or plasma [address] (Outpatient Lab), [address], [address], 5 17:10:59 magnesium , serum or plasma [address] (Outpatient Lab), [address], [address], 5 17:10:58 vitamin B12, serum [address] (Outpatient Lab), [address], [address], 5 17:10:58 CBC w/ auto diff [address] (Outpatient Lab), [address], [address], 5 17:10:56 CMP, serum or plasma [address] (Outpatient Lab), [address], [address], 5 17:10:57 lipid panel, serum [address] (Outpatient Lab), [facility], [address] [place] [address], [address], 5 17:10:57 TSH, serum or plasma [address] (Outpatient Lab), [facility], [address] [place] [address], [address], 5 17:10:57 T4, free, serum [address] (Outpatient Lab), [facility], [address] [place] [address], [address], 5 17:10:58 lipid panel, serum 024 [facility] (Outpatient Lab), [facility], [address] [place] [address], [address], 4 15:52:07 CMP, serum or plasma 024 [facility] (Outpatient Lab), [facility], [address] [place] [address], [address], 4 15:39:47 T4, free, serum [id number] [place] [address] (Outpatient Lab), [facility], [address] [place] [address], [address], 4 09:53:00 TSH, serum or plasma 024 [facility] (Outpatient Lab), [facility], [address] [place] [address], [address], 4 15:52:08 PSA, serum or plasma 024 [facility] (Outpatient Lab), [facility], [address] [place] [address], [address], 4 15:52:07 magnesium , serum or plasma [address] (Outpatient Lab), [facility], [address] [place] [address], [address], 4 09:53:00 vitamin B12, serum [address] (Outpatient Lab), [facility], [address] [place] [address], [address], 4 09:53:00 CBC w/ auto diff [facility] (Outpatient Lab), [facility], [address] [place] [address], [address], 4 15:52:08 lipid panel, serum 024 [facility] (Outpatient Lab), [facility], [address] [place] [address], [address], 4 15:40:35 T4, free, serum [address] (Outpatient Lab), [facility], [address] [place] [address], [address], 4 16:24:45 TSH, serum or plasma [facility] (Outpatient Lab), [facility], [address] [place] [address], [address], 4 15:40:35 magnesium , serum or plasma [address] (Outpatient Lab), [facility], [address] [place] [address], [address], 4 16:24:45 vitamin B12, serum 024 024 [facility] (Outpatient Lab), [facility], [address] [place] [address], [address], 4 15:40:35 CBC w/ auto diff 024 024 [facility] (Outpatient Lab), [address], [address], 4 15:40:35 CMP, serum or plasma 024 024 [facility] (Outpatient Lab), [facility], [address] [place] [address], [address], 4 15:40:35 lipid panel, serum 023 023 [facility] (Outpatient Lab), [address], [address], 3 11:00:12 CMP, serum or plasma 023 023 [facility] (Outpatient Lab), [facility], [address] [place] [address], [address], 3 11:00:11 TSH, serum or plasma 023 023 [facility] (Outpatient Lab), [address], [address], 3 11:00:12 T4, free, serum 023 023 [facility] (Outpatient Lab), [address], [address], 3 11:00:12 PSA, serum or plasma 023 023 [facility] (Outpatient Lab), [facility], [facility], [place], [address], 3 11:00:12 magnesium , serum or plasma 023 023 [facility] (Outpatient Lab), [facility], [facility], [place], [address], 3 11:03:38 vitamin B12, serum 023 023 [facility] (Outpatient Lab), [facility], [facility], [place], [address], 3 11:00:12 CBC w/ auto diff 023 [facility] (Outpatient Lab), [facility], [facility], [place], [address], 3 11:00:12 Referral None recorded. Procedures None recorded. Surgeries None recorded. Imaging None recorded. Medication Orders None recorded. Patient TargetsNo targets recorded. Patient Instructions Encounter Date Encounter Id Patient Instructions Last Modified By Organization Details Last Modified Time 11/16/2022 [id number] Asthma -hypertension-hyper lipidemia -GERD all clinically stable. Will check blood work in the form of CBC, CMP, lipid, thyroid a B12 and magnesium level. Also needs a PSA. Is in need of a repeat low-dose CT scan of the chest for evaluation of right upper lobe lesion. There is a problem with possible insurance coverage in the next several weeks. Will try to get this done early. Low-dose CT scan of the chest for evaluation right upper lobe lesion [email or web address] Not available 11/16/2022 16:40:18 05/24/2023 [id number] risk assessment* [email or web address] Not availabl e 05/24/2023 16:46:42 INFLUENZA VACCIN E TD/TDAP Recommended today, patient declined Ordered Pa tient will get at local pharmacy/health department PNEUMONIA VACCINE Ordered Recommended today, patient declined Patient will get at local pharmacy/health department Recommen ded at age 66 SHINGLES PSA Ordered No screening necessary patient is up to date COLORECTAL SCREENING No screening necessary patient is up to date DEPRESSION SCREENING Negative BMI Overweight Appropri ate NUTRITION PHYSICAL ACTIVITY Need more exercise/physical activity ALCOHOL USE No alcohol use TOBACCO USE non smoker LUNG CANCER SCREENING Non Smoker-not indicated SEXUALLY ACTIVE HEPATITIS C SCREENING Not indicated GLUCOSE SCREENING LIPID SCREENING [email or web address] Not available 05/24/2023 16:30:45 Adult health examination risk assessment stable. Follow-up hypertension-GERD -hyperlipidemia -asthma -anxiety. Will continue on current Rx. Check blood work in the form of CBC, CMP, lipid, thyroid, B12, magnesium level. Has had a PSA performed not due for colonoscopy. Will continue on current Rx follow-up in six months. FDA recommendations of a influenza, RSV, COVID, pneumococcal immunizations strongly advised. Portions of the record may have been created with voice recognition software. Occasional wrong-word or sicpz-i-ekth substitutions may have occurred due to the inherent limitations of voice recognition software. Read the chart carefully and recognize, using context, where substitutions have occurred. [email or web address] Not available 05/24/2023 16:46:19 11/22/2023 [id number] Follow-up hypertension, GERD, hyperlipidemia, asthma all clinically stable. Check blood work consisting of CBC, CMP, lipid, B12, magnesium level, PSA and low-dose CT scan of the chest. Continue on current Rx follow-up in six months Additional Orders and/or Directives: 1. Low-dose CT scan the chest please do that where he has had the previous ones done for comparison purposes Next Appointment: 6 Months Approximate Date: 05/20/2024 Portions of the record may have been created with voice recognition software. Occasional wrong-word or xrdlj-j-xrip substitutions may have occurred due to the inherent limitations of voice recognition software. Read the chart carefully and recognize, using context, where substitutions have occurred. [email or web address] Not available 11/22/2023 16:59:20 05/09/2024 [id number] Cerebral aneurys m, hypertension, hyperlipidemia and multiple pulmonary nodules by history. Will continue on current Rx since he was in the emergency room recently will not perform any additional blood work at this time. Will continue on current Rx follow-up in two months. Follow Up: 2 Months Approximate Date: 07/08/2024 Portions of the record may have been created with voice recognition software. Occasional wrong-word or tpfxn-l-uofq substitutions may have occurred due to the inherent limitations of voice recognition software. Read the chart carefully and recognize, using context, where substitutions have occurred. Created: Sander Spann M.D. 05.09.2024 04:29 PM [email or web address] Not available 05/09/2024 17:29:52 10/10/2024 [id number] Adult health examination risk assessment stable. Follow-up for essential hypertension, hyperlipidemia, cerebellar aneurysm as well as GERD all clinically stable. Check blood work consisting of CBC, CMP, lipid, thyroid congestion on the right side. C no physical signs of any acute infection but has had problems for the last several months. Follow-up otherwise in four months Follow Up: 4 Months Approximate Date: 02/07/2025 Portions of record are template driven. When necessary additional context will be provided. Additionally some portions have been created with voice recognition software. Occasional wrong-word or ltwwi-t-kzkt substitutions may have occurred due to the inherent limitations of voice recognition software. Read the chart carefully and recognize, using context, where substitutions may have occurred. Created: Sander Spann M.D. 10.10.2024 04:09 PM [email or web address] Not available 10/10/2024 17:09:44 Reason for Referral None Reported. Results Created Date Observation Date Name Description Value Unit Range Abnormal Flag Note LastModifiedBy Organization Detail LastModifiedTime 11/19/[address], chest , w/o contr ast No observ ation record ed. [email or web address] [facility] ([facility]) [address] [place], [address], 11/18/2022 09:40:22 Result Notes None recorded. Problems Name Problem SNOMED Code Status Onset Date Resolution Date Notes Provider Name and Address Organization Details Recorded Time Renewal of prescripti on Active 2021 Not Available [employer] 3 07:32:03 Asthma 592028254 Active 2017 Not Available [employer] 3 07:32:03 Headache disorder 856290019 Active 2017 Not Available [employer] 3 07:32:03 Gastroesop hageal reflux disease 559695320 Active Not Available [employer] 3 07:32:03 Pure hyperchole sterolemia 149401990 Active Not Available [facility] 3 07:32:04 Pain in coccyx 95276895 Active Not Available [facility] 3 07:32:04 Depressive disorder 28081961 Completed Not Available [facility] 3 07:32:04 Memory impairment 954237199 Completed Not Available [facility] 3 07:32:04 Anxiety 92832021 Active 2019 Not Available [facility] 3 07:32:04 Essential hypertensi on 60050447 Active 2019 Not Available [facility] 3 07:32:04 Dyspnea on exertion 31816455 Active 2021 Not Available [facility] 3 07:32:04 Obstructiv e sleep apnea syndrome 06989613 Active 2017 Not Available [facility] 3 07:32:04 COVID-19 476776019 Active 2021 Not Available [facility] 3 07:32:04 Cough 63664840 Active 2022 Sander Spann MD [address], [address], [place], [address] , [facility] 3 11:55:32 Disorder of prostate 00191071 Active 2022 Sander Spann MD [address], [address], [place], [address] , [facility] 3 16:39:53 Multiple nodules of lung 813793702 Active 2022 Danika May null, [place] [facility] 3 17:04:17 Hyperlipid emia 09910845 Active 2022 ELIZABETH Gautam, [place] [facility] 3 11:56:58 Insomnia 957463738 Active 2022 Ekaterina Baeza CMA null, [place] [facility] 3 11:58:30 Hemorrhoid s 14996921 Active 2022 Sander Spann MD [address], [address], [place], [address] , [facility] 3 11:29:55 Acute bronchitis 81364321 Active 2023 Sander Spann MD [address], [address], [place], [address] , [facility] 4 10:54:59 Aneurysm of cerebral artery 316480202 Active 2023 Sander Spann MD [address], [place], [address] , [facility] 4 17:25:13 Vertigo 713994822 Active 2024 Ekaterina Baeza CMA null, [facility] 5 15:06:31 Bronchitis 76674771 Active 2024 Jyoti Wilcox null, [facility] 5 17:15:44 Problem Notes None recorded. Procedures Surgical History None recorded. Imaging Results Imaging Date Name Status LastModified by Organiz ation Details LastModified Time 11/18/2022 CT, chest, w/o contrast completed [email or web address] [facility] ([facility]) [facility] [place], [address], 11/18/2022 09:40:22 Procedure Notes None recorded. Medical Equipment None Reported. Medications Name Sig Start Date Stop Date Status Note LastModified by Organization Details LastModified Time cyclobenzap rine 10 mg tablet Take 1 tablet three times daily active Not Available Not Available No t Available prednisone 10 mg tablet 07/22 completed Not Available Not Available Not Available doxycycline hyclate 100 mg capsule Take 1 capsule twice a day by oral route. 09/10 completed Not Available Not Available Not Available cefuroxime axetil 250 mg tablet 07/22 completed Not Available Not Available Not Available benzonatate 200 mg capsule TK 1 C PO TID 10/10 completed Not Available Not Available Not Available hydrocodone 5 mg-acetamin ophen 325 mg tablet 07/22 completed Not Available Not Available Not Available Prilosec 20 mg capsule,del ayed release Take 1 capsule every day by oral route. 12/01 completed Not Available Not Available Not Available prednisone 5 mg tablet 07/22 completed Not Available Not Available Not Available Zithromax Z-Mick 250 mg tablet Take 2 TABLET EVERY DAY by oral route for 1 day then one daily 2024 active Not Available Not Available Not Avai lable promethazin e 6.25 mg-codeine 10 mg/5 mL syrup Take 5 mL every 6 hours by oral route. 01/14 completed Not Available Not Available Not Available Ciloxan 0.3 % eye drops Instill 1 DROP EVERY 2 HOURS while awake active Not Available Not Available No t Available simvastatin 40 mg tablet Take 1 tablet every day by oral route. 05/09 completed Not Available Not Available Not Available hydrocortis one 2.5 % topical cream with perineal applicator INSERT RECTALLY TO THE AFFECTED AREA THREE TIMES DAILY DIRECTED NEEDED 05/09 completed Not Available Not Available Not Available meclizine 25 mg tablet Take 1 tablet 3 times a day by oral route. 10/10 completed Not Available Not Available Not Available Levaquin 500 mg tablet Take 1 tablet every 24 hours by oral route. 03/21 completed Not Available Not Available Not Available lorazepam 1 mg tablet Take 1 Tablet (1 mg) by mouth 3 times daily as needed for anxiety. 2024 active Not Available Not Available Not Avai lable cefuroxime axetil 500 mg tablet 07/22 completed Not Available Not Available Not Available Pillager 7.5 mg-325 mg tablet Take 1 tablet every 6 hours by oral route. active Not Available Not Available No t Available zolpidem 10 mg tablet Take 1 Tablet (10 mg) by mouth daily at bedtime. 2024 active Not Available Not Available Not Avai lable methylpredn isolone 4 mg tablets in a dose pack FOLLOW PACKAGE DIRECTION S 03/14 completed Not Available Not Available Not Available albuterol sulfate HFA 90 mcg/actuati on aerosol inhaler INHALE 2 PUFFS BY MOUTH EVERY 4 HOURS active Not Available Not Available No t Available ondansetron 4 mg disintegrat ing tablet 10/10 completed Not Available Not Available Not Available cefdinir 300 mg capsule Take 1 capsule every 12 hours by oral route. 09/10 completed Not Available Not Available Not Available fluticasone propionate 50 mcg/actuati on nasal spray,suspe nsion 12/01 completed Not Available Not Available Not Available amoxicillin 875 mg-potassiu m clavulanate 125 mg tablet TAKE 1 TABLET BY MOUTH TWICE DAILY 11/21 completed Not Available Not Available Not Available AcipHex 20 mg tablet,sulaiman yed release Take 1 tablet every day by oral route. 2012 active Not Available Not Available Not Avai lable rosuvastati n 20 mg tablet Take 1 Tablet (20 mg) by mouth daily at bedtime. active Not Available Not Available No t Available Norvasc 01/20 completed Not Available Not Available Not Available Suprep Bowel Prep Kit 17.5 gram-3.13 gram-1.6 gram oral solution 07/22 completed Not Available Not Available Not Available Breo Ellipta 200 mcg-25 mcg/dose powder for inhalation INHALE 1 PUFF BY MOUTH DAILY. RINSE MOUTH active Not Available Not Available No t Available rosuvastati n 40 mg sprinkle capsule Take 1 capsule every day by oral route. active Not Available Not Available No t Available Paxlovid 300 mg (150 mg x 2)-100 mg tablets in a dose pack TK 2 NIRMATREL VIR TS AND 1 RITONAVIR T TOGETHER PO BID FOR 5 DAYS BID FOR 5 DAYS 11/16 completed Not Available Not Available Not Available Vitals Date Recorded Body height Body mass index (BMI) Body weight Heart rate Body temperature Oxygen saturation Oxygen saturation in Arterial blood by Pulse oximetry Systolic blood pressure Diastolic blood pressure Provider Name and Address Organization Details Last Updated DateTime 3 172.72 cm 23.4 kg/m2 28115.2 2 g 77 /min 97 [degF] 97 % 97 % 120 mm[Hg] 82 mm[Hg] Jyoti Camacho [place] [facility] 3 16:27:04 Date Recorded Body height Body mass index (BMI) Body weight Heart rate Body temperature Oxygen saturation Oxygen saturation in Arterial blood by Pulse oximetry Systolic blood pressure Diastolic blood pressure Provider Name and Address Organization Details Last Updated DateTime 4 172.72 cm 24.3 kg/m2 04246.7 8 g 62 /min 97 [degF] 97 % 97 % 120 mm[Hg] 60 mm[Hg] Jyoti Wilcox [employer] 4 16:21:42 Date Recorded Body height Body mass index (BMI) Body weight Heart rate Body temperature Oxygen saturation Oxygen saturation in Arterial blood by Pulse oximetry Systolic blood pressure Diastolic blood pressure Provider Name and Address Organization Details Last Updated DateTime 4 172.72 cm 24.5 kg/m2 29479.3 7 g 77 /min 97.9 [degF] 97 % 97 % 120 mm[Hg] 80 mm[Hg] Linette Robert [facility] [employer] [facility] [employer] [facility] 4 16:43:06 Date Recorded Body height Body mass index (BMI) Body weight Heart rate Body temperature Oxygen saturation Oxygen saturation in Arterial blood by Pulse oximetry Systolic blood pressure Diastolic blood pressure Provider Name and Address Organization Details Last Updated DateTime 4 172.72 cm 24.5 kg/m2 21618.3 7 g 74 /min 97 [degF] 98 % 98 % 110 mm[Hg] 80 mm[Hg] Linette Robert [facility] [employer] [facility] [employer] [facility] 4 17:05:06 Date Recorded Body height Body mass index (BMI) Body weight Heart rate Body temperature Oxygen saturation Oxygen saturation in Arterial blood by Pulse oximetry Systolic blood pressure Diastolic blood pressure Provider Name and Address Organization Details Last Updated DateTime 5 172.72 cm 25.2 kg/m2 43885.3 3 g 77 /min 97 [degF] 98 % 98 % 112 mm[Hg] 72 mm[Hg] Jyoti Wilcox [employer] [facility] [employer] 5 16:52:08 Social History Question Answer Notes LastModified by Organizat ion Details LastModified Time Do You Have An Advance Directive? No [id number] Information not available 07/20/2022 In The 14 Days Before Symptom Onset, Have You Had Close Contact With A Laboratory-confirme d COVID-19 While That Case Was Ill? No [id number] Information not available 07/20/2022 In The 14 Days Before Symptom Onset, Have You Had Close Contact With A Person Who Is Under Investigation For COVID-19 While That Person Was Ill? No [id number] Information not available 07/20/2022 Do You Have A Medical Power Of Resource Recovery Engineer? No [id number] Information not available 07/20/2022 Have You Recently Traveled Abroad? 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 Family History Nothing Reported Notes:Mother Living 73 years old some psychiatric disorder and Bone cancer Father Living 74 years old hx of nephrectomy and bladder cancer 1 Sisters 1 Living COPD Medical History Condition Response NERVE DISEASE N BLINDNESS N RHEUMATIC FEVER N KIDNEY STONES N BLADDER PROBLEMS N OTHER # 1 N POLIO N LUNG DISEASE/DISORDER N COPD N RADIATION / CHEMOTHERAPY N Other # 2 N BLOOD DISEASES N SURGERY N EAR OR HEARING PROBLEMS N MUMPS N DEPRESSION (INCLUDING POST ) Y BOWEL PROBLEMS N STROKE/TIA N ULCERS N BENIGN PROSTATIC HYPERPLASIA N MEASLES N MYOCARDIAL INFARCTION N OBESITY N GERD/NAUSEA Y ANEURYSM N URINARY/BLADDER/KIDNEY PROBLEMS N CORONARY ARTERY DISEASE (CAD) N INPATIENT PSYCH CARE N ADDICTION CONCERNS N Impotence N ENDOMETRIOSIS N USE OF BLOOD THINNERS N SKIN PROBLEMS N GASTROINTESTINAL DISORDER N PERIPHERAL VASCULAR DISEASE N MUSCLE,JOINT OR BONE PROBLEMS N GASTROINTESTINAL BLEEDING N BLOOD CLOTS N ASTHMA N CATARACTS N ERECTILE DYSFUNCTION N VARICOSITIES N GI PROBLEMS N Low Testosterone N INFERTILITY N AIDS/HIV N LIVER DISEASE N MALE HYPOGONADISM N HYPERTENSION Y Deficiency N ANXIETY DISORDER N BLOOD TRANSFUSION N ANEMIA/BLOOD DISORDER N CHRONIC EAR INFECTIONS N BRONCHITIS N TUBERCULOSIS N GLAUCOMA N DIVERTICULITIS N SLEEP APNEA N CHICKENPOX N INFECTIOUS DISEASE N PROSTATE N HEART ARRHYTHMIA N INSOMNIA N HIGH CHOLESTEROL / HYPERLIPIDEMIA Y EYE PROBLEMS N HYPERTHYROIDISM N NEUROLOGICAL PROBLEMS N EDEMA N CHRONIC PAIN SYNDROME N HYPOTHYROIDISM N CAROTID BLOCKAGE N CONSTIPATION N BACK / NECK PROBLEMS N HAVE YOU BEEN HOSPITALIZED OR SEEN IN [facility] IN THE PAST YEAR ? N ATHEROSCLEROSIS N BREAST PROBLEMS N DIALYSIS N ECZEMA N OSTEOPOROSIS N ARTHRITIS N NO SIGNIFICANT PAST MEDICAL HISTORY N APPENDICITIS N DIABETES, TYPE N BAD TEETH N ENT N HEARTBURN / REFLUX N AUTISM SPECTRUM DISORDER (ASD) N HEPATITIS / LIVER DISEASE N PULMONARY DISEASE N GOUT N SLEEP DISORDER N ALZHEIMER'S DISEASE N Brain Problems N DEMENTIA N HERPES N SEIZURES/EPILEPSY N HEADACHES/MIGRAINES N VASCULAR DISEASE N PACEMAKER N Blood Disorder N DIZZINESS N HEART DISEASE/HEART PROBLEMS N KIDNEY DISEASE N MULTIPLE SCLEROSIS N CANCER: SPECIFY N CARDIAC ARRHYTHMIA N ANESTHESIA COMPLICATIONS N ATRIAL FIBRILLATION N Gall Stones N PULMONARY EMBOLISM N AUTOIMMUNE DISEASE N Immunizations Vaccine Type Date Status Note Provider Nam e and Address Organization Details Recorded Time SARS-COV-2 (COVID-19) vaccine, UNSPECIFIED 3 completed Jyoti Barbosacka null, [facility] 05/24/2023 16:22:06 influenza, unspecified formulation 3 completed Jyoti Slecka null, [facility] 05/24/2023 16:22:16 Respiratory syncytial virus (RSV) MAB, unspecified 3 completed Ekaterina Baeza CMA null, [facility] 07/05/2023 17:01:37 Influenza, recombinant, trivalent, PF 4 completed Linette Robert RMA null, [facility] 03/21/2024 17:01:57 COVID-19, mRNA, LNP-S, PF, 50 mcg/0.5 mL 4 completed Linette Robert RMA null, [facility] 03/21/2024 17:03:44 Influenza, split virus, quadrivalent, preservative 2 completed Not Available [facility] 07/20/2022 07:37:09 zoster recombinant 1 completed Not Available [facility] 07/20/2022 07:37:09 Influenza, adjuvanted, trivalent, PF 1 completed Not Available [facility] 07/20/2022 07:37:09 COVID-19, mRNA, LNP-S, PF, 100 mcg/0.5mL dose or 50 mcg/0.25mL dose 1 completed Not Available [facility] 07/20/2022 07:37:09 varicella 1 completed Not Available [facility] 07/20/2022 07:37:09 SARS-COV-2 (COVID-19) vaccine, UNSPECIFIED 1 completed Not Available [facility] 07/20/2022 07:37:09 Past Encounters Encounter ID Performer Location Encounter Start Date Encounter Closed Date Diagnosis/Indication Diagnosis SNOMED-CT Code Diagnosis ICD10 Code Diagnosis Note [id number] Sander Spann MD [facility] [address] [place] [address] [address] 07/22/2020 00:00:00 07/22/2020 17:23:14 [id number] Sander Spann MD [facility] [address] [place] [address] [address] 01/20/2021 00:00:00 01/20/2021 17:14:52 [id number] Sander Spann MD [facility] Melanie yang [address] [facility] , [facility] [place] [address] 06/01/2021 00:00:00 06/01/2021 12:07:29 [id number] Sander Spann MD [facility] [address] [place] [address] [address] 06/23/2021 00:00:00 06/23/2021 15:51:28 [id number] Sander Spann MD [facility] Internal Med [address] [address] 12/01/2021 00:00:00 12/01/2021 17:39:41 [id number] Sander Spann MD [facility] [place] [address] [address] 06/01/2022 00:00:00 06/01/2022 17:42:24 [id number] Sander Spann MD [facility] [place] [address] [address] 11/16/2022 16:11:59 11/16/2022 17:11:21 Essential hypertension 13768254 I10 Gastroesop hageal reflux disease 720921509 K21.9 Pure hypercholesterolemia 863114106 E78.00 Asthma 983964316 J45.90 9 Disorder of prostate 302 31272 N42.9 [id number] Sander Spann MD [facility] [address] [place] [address] [address] 05/24/2023 16:04:56 05/24/2023 16:51:20 Adult health examination 684862400 Z00.00 Depression screening 171 310116 Z13.31 Essential hypertension 52784720 I10 Gastroesop hageal reflux disease 385999094 K21.9 Pure hypercholesterolemia 463675904 E78.00 Anxiety 00511802 F41.9 Asthma 302957018 J45.90 9 [id number] Sander Spann MD [facility] Internal Med [facility] [address] [address] 11/22/2023 16:33:36 11/22/2023 17:06:33 Essential hypertension 74017070 I10 Gastroesop hageal reflux disease 992013892 K21.9 Pure hypercholesterolemia 741408831 E78.00 Asthma 632094389 J45.90 9 Disorder of prostate 302 93544 N42.9 [id number] Sander Spann MD [facility] Primary Care [address] [place] [address] 05/09/2024 16:32:35 05/09/2024 17:38:19 Aneurysm of cerebral artery 859213619 I67.1 Essential hypertension 51203232 I10 Hyperlipidemia 54587315 E78.5 Multiple n odules of lung 147912651 R91.8 [id number] Sander Spann MD [facility] Internal Med [facility] [address] [address] 10/10/2024 16:37:20 10/10/2024 17:14:25 Aneurysm of cerebral artery 579268535 I67.1 General ex amination of patient 636297159 Z00.00 Essential hypertension 53225145 I10 Gastroesop hageal reflux disease 287470786 K21.9 Hyperlipidemia 50271944 E78.5 Disorder of prostate 302 80282 N42.9 Health Concerns Section Related Observation LastModified by Organization Detai ls LastModified Time None Recorded Concern Status LastModified by Organization Details LastModified Time None Recorded Advance Directives Directive N: Payers Encounter Date Sequence Insurance Name Policy Number Policy Sherman Covered Member ID Sherman Member ID Guarantor Name 11/16/2022 1 MARILY [id number] Jairo Gerard [id number] Jairo Gerard 05/24/2023 1 [place] [id number] April Gerard [id number] Jairo Gerard 11/22/2023 1 [place] [id number] April Gerard [id number] Jairo Gerard 05/09/2024 1 [place] [id number] April Gerard [id number] Jairo Gerard 10/10/2024 1 [facility] [id number] April Gerard [id number] Jairo Gerard Notes Date Note Type Note Provider Name and Address Organization Details Recorded Time 11/17/19 23 text/htm l Patient Name: Jairo Pereaate Of Service: Monday ( 11.16.2022 ): 1960 Age: 62 Vital Signs:Blood Pressure: Sitting Rt. Arm 120/82Pulse: Sitting 77 /min and RegularRespirations: 12Height 68 in or 1.7 mWeight 154 lb or 69.9 kgBMI 23.4Temperature: 97 F or 36.1 CPulse Oximetry: 97 % at rest on no oxygen Chief Complaint: Addressed in HPI Problems or conditions discussed in the HPI were the only ones reviewed during the encounter.Only social and family history addressed in the HPI were reviewed during this encounter. Attendant(s): None Constitutional and Systemic Symptoms: none Medication Reconciliation: from medication list. Weubwezavyy24/14/2023: CTA of the thorax from 09/02/2022 shows aortic root which measures 4.3 cm in diameter. Findings also suggestive some mild mitral valve prolapse. Ill-defined ground-glass opacities noted in the right upper lobe. Suggestion of possible adenocarcinoma spectrum lesion. Needs a follow-up lung scan in three months. History of Present Illness #1. Hx of asthma. Daily medications: Breo Ellipta. Uses bronchodilators very infrequently. Night time exacerbations: 3-4 times monthly There has been no cough, congestion, or sputum production. No changes in exercise tolerance. Denies any fever or chills. Tolerating the medications without problems. The current status could be classified as mild persistent asthma. Using nebulizer Treatments: No. #2. Essential Hypertension: Stage: Stage I Interval Neurological Complaints no headaches, dizziness, weakness, visual changes, ataxia, aphasia and apraxia. No shortness of breath, orthopnea or cardiovascular symptoms. No other symptoms related to end organ damage. Pressure has been under excellent control. Currently normal. No other end organ symptoms or findings. Therapy reviewed regarding management of hypertension and includes salt restriction. #3. Type II Hypercholesterolaemia: Currently taking medication and tolerating well. No interval complaints of any muscle pain or arthralgia. No significant liver changes with medications. Last lipid panel: fair control. Therapy reviewed regarding treatment of cholesterol management and include diet and Simvastatin. #4. Hx of esophageal reflux currently stable. Hx of Complications: none The severity, duration and intensity of symptoms have improved. Frequency: most meals Treatment consists medications taken on a regular basis. Current therapy includes Prilosec. There has been no nausea, eructation, vomiting, hematemesis, dysphagia, velopharyngeal insufficiency and odynophagia. No change in he frequency or intensity of symptoms. Has had no melena. Has had no hematemesis. Discuss the possibility of trying to reduce the frequency of the use of any PPI inhibitors or H2 antagonist to see if symptoms can be controlled with last intensive therapyMedication List Reviewed and Reconciled 11/16/2022reo Ellipta 0.1 MG/INH- 0.025 MG /INH (POWDER - INHALATION) One Puff DailyFlonase 0.0275 MG/SPRAY (SPRAY, METERED - NASAL) One [place] Each NostrilAmbien 10 MG (TABLET - ORAL) One Hs Prn For SleepPrilosec 40 MG (CAPSULE, DELAYED REL PELLETS - ORAL) One Daily For RefluxLorazepam 1 MG (TABLET - ORAL) One TidSimvastatin 40 MG (TABLET - ORAL) One DailyVaccination and Opqejasggkof4907-79 Kszybskct4200-22 Covid 19 Misha & JSurgical HistoryEsophageal Dilatation, Septoplasty, Esophageal Dilatation, Pilonidal CystPreventative Testing Confirmed by Our Aypmrfc3002/18/2022 UPPER WLKEHDLZN47/15/2022 PSA12/09/2017 CT PCHGBI5406/01/2017 COLONOSCOPY (10 YEARS) 8002/10/2015 ALBUMIN 4.5 G/DLSocial HistoryMarital Status: MLiving Status: With SpouseOccupational Exposure:Does not smoke cigarettes. Exercise: InfrequentlySexual Hx: Sexually ActiveFamily HistoryMother Living 73 years old some psychiatric disorder and Bone cancer Father Living 74 years old hx of nephrectomy and bladder cancer1 Sisters 1 Living COPD Sander Spann MD [address] [facility], [facility] [address], [place], [address], [place] [facility] [place] [employer] [facility] 11/16/2022 16:40:38 05/24/19 24 text/htm l Patient Name: Jairo Helms Of Service: Monday ( 05.24.2023 ): 1960 Age: 62 There has been approximately a 6 lb weight gain since 11/16/2022. This represents approximately a 3.9% change in weight. Weight change attributable to lifestyle changes. Vital Signs:Blood Pressure: Sitting Rt. Arm 120/60Pulse: Sitting 62 /min and RegularRespiratory Rate: 12Height 68 in or 1.7 mWeight 160 lb or 72.6 kgBMI 24.3Temperature: 97 F or 36.1 CPulse Oximetry: 97 % at rest on no oxygen Chief Complaint: Addressed in HPI Problems or conditions discussed in the HPI were the only ones reviewed during the encounter.Only social and family history addressed in the HPI were reviewed during this encounter. Attendant(s): NoneConstitutional and Systemic Symptoms:none Medication Reconciliation: from medication list. Jsdvrtpeolr92/14/2023: CTA of the thorax shows aortic root which measures 4.3 cm in diameter. Findings also suggestive some mild mitral valve prolapse. Ill-defined ground-glass opacities noted in the right upper lobe. Suggestion of possible adenocarcinoma spectrum lesion. Needs a follow-up lung scan in three months. 11/17/2022: Follow-up low-dose CT scan of the chest for right upper lobe abnormality shows almost complete resolution of this abnormality. Likely infectious in origin. A new 1 cm nodule is noted in the left upper lobe. Given the short interval this is likely infectious but it is recommended to have a repeat low-dose CT scan in three months to assess resolution. Unchanged dilatation of the aortic root up to 4.4 cm. History of Present Illness In for a well patient check up. Last well patient evaluation was approximately one year. No interval complaints of any new major medical problems. No hx of any chest pain, shortness of breath, nausea, vomiting, diarrhea or constitutional symptoms.PSA already performedColonoscopy or Cologuard: not dueImmunizations Up To Date or refuses to takeNo Significant Change In Family HxFall Risk normalDepression Score: 0Hearing normalVisual normalReviewed Smoking and Drug HistoryReviewed Immunization HistoryInstructed on importance of weight on diabetes, heart and other diseases aggravated by obesity.Instructed on importance of weight on diabetes, heart and other diseases aggravated by obesity. #1. Essential Hypertension: Stage: Stage I Interval Neurological Complaints no headaches, dizziness, weakness, visual changes, ataxia, aphasia and apraxia. No shortness of breath, orthopnea or cardiovascular symptoms. No other symptoms related to end organ damage. Pressure has been under excellent control. Currently normal. No other end organ symptoms or findings. Therapy reviewed regarding management of hypertension and includes salt restriction. #2. Type II Hypercholesterolaemia: Currently taking medication and tolerating well. No interval complaints of any muscle pain or arthralgia. No significant liver changes with medications. Last lipid panel: fair control. Therapy reviewed regarding treatment of cholesterol management and include diet and Simvastatin. #3. Hx of esophageal reflux currently stable. Hx of Complications: none The severity, duration and intensity of symptoms have improved. Frequency: most meals Treatment consists medications taken on a regular basis. Current therapy includes Prilosec. There has been no nausea, eructation, vomiting, hematemesis, dysphagia, velopharyngeal insufficiency and odynophagia. No change in he frequency or intensity of symptoms. Has had no melena. Has had no hematemesis. Discussedthe possibility of trying to reduce the frequency of the use of any PPI inhibitors and try H2 antagonists to see if symptoms can be controlled with lease intensive therapy since a number of complications are associated with chronic prolonged use of PPI inhibitors. #4. Hx of asthma. Daily medications: Breo Ellipta. Uses bronchodilators several times per month. Night time exacerbations: 3-4 times monthly There has been no cough, congestion, or sputum production. No changes in exercise tolerance. Denies any fever or chills. Tolerating the medications without problems. The current status could be classified as mild persistent asthma. Using nebulizer Treatments: No. #5. Anxiety Disorder: History of anxiety disorder. There has been no panic attacks. No interval complaints of any vegetative or other signs of depression. Taking Lorazepam. Discussed possibility of decreasing and weaning off medication. Feels that current regimen is working fine and wishes not to change the current treatment regimen. Medication not causing any sedation or cognitive dysfunction and there is no contraindication to continue current therapy.Medication List Reviewed and Reconciled 05/24/2023reo Ellipta 0.1 MG/INH- 0.025 MG /INH (POWDER - INHALATION) One Puff DailyFlonase 0.0275 MG/SPRAY (SPRAY, METERED - NASAL) One [place] Each NostrilAmbien 10 MG (TABLET - ORAL) One Hs Prn For SleepPrilosec 40 MG (CAPSULE, DELAYED REL PELLETS - ORAL) One Daily For RefluxLorazepam 1 MG (TABLET - ORAL) One TidSimvastatin 40 MG (TABLET - ORAL) One DailyVaccination and Dmqesgeaqipg8716-70 Nau3499-61 Bsaiugkzj8432-08 Covid Booster Wjtomrk1720-45 Covid 19 Misha & JohnsonSurgical HistoryEsophageal Dilatation, Septoplasty, Esophageal Dilatation, Pilonidal CystPreventative Testing Confirmed by Our Jgmnbeb9011/17/2022 PSA11/17/2022 LDCT / UPPER RTFOLYPGJ17/21/2018 CT HPRIIW5706/01/2017 COLONOSCOPY (10 YEARS) ALBUMIN 4.5 G/DL NSocial HistoryMarital Status: MLiving Status: With SpouseOccupational Exposure:Does not smoke cigarettes. Exercise: InfrequentlySexual Hx: Sexually ActiveFamily HistoryMother Living 73 years old some psychiatric disorder and Bone cancer Father Living 74 years old hx of nephrectomy and bladder cancer1 Sisters 1 Living COPD Sander Spann MD [address] [facility] [address], [place], [address], [facility] [employer] 05/24/2023 16:46:46 11/22/19 24 text/htm l Patient Name: Jairo Helms Of Service: Monday ( 11.22.2023 ): 1960 Age: 63 Vital Signs:Blood Pressure: Sitting Rt. Arm 120/80Pulse: Sitting 77 /min and RegularRespiratory Rate: 12Height 68 in or 1.7 mWeight 161 lb or 73.0 kgBMI 24.5Temperature: 97.9 F or 36.6 CPulse Oximetry: 97 % at rest on no oxygen Chief Complaint: Addressed in HPI Problems or conditions discussed in the HPI were the only ones reviewed during the encounter.Only social and family history addressed in the HPI were reviewed during this encounter. Attendant(s): NoneConstitutional and Systemic Symptoms:none Medication Reconciliation: from medication list. Toivlkdrmnk67/14/2023: CTA of the thorax shows aortic root which measures 4.3 cm in diameter. Findings also suggestive some mild mitral valve prolapse. Ill-defined ground-glass opacities noted in the right upper lobe. Suggestion of possible adenocarcinoma spectrum lesion. Needs a follow-up lung scan in three months. 11/17/2022: Follow-up low-dose CT scan of the chest for right upper lobe abnormality shows almost complete resolution of this abnormality. Likely infectious in origin. A new 1 cm nodule is noted in the left upper lobe. Given the short interval this is likely infectious but it is recommended to have a repeat low-dose CT scan in three months to assess resolution. Unchanged dilatation of the aortic root up to 4.4 cm. History of Present Illness #1. Essential Hypertension: Stage: Stage I Interval Neurological Complaints no headaches, dizziness, weakness, visual changes, ataxia, aphasia and apraxia. No shortness of breath, orthopnea or cardiovascular symptoms. No other symptoms related to end organ damage. Pressure has been under excellent control. Currently normal. No other end organ symptoms or findings. Therapy reviewed regarding management of hypertension and includes salt restriction. #2. Type II Hypercholesterolaemia: Currently taking medication and tolerating well. No interval complaints of any muscle pain or arthralgia. No significant liver changes with medications. Last lipid panel: fair control. Therapy reviewed regarding treatment of cholesterol management and include diet and Rosuvastatin. #3. Hx of esophageal reflux currently stable. Hx of Complications: none The severity, duration and intensity of symptoms have improved. Frequency: most meals Treatment consists medications taken on intermittent basis. Current therapy includes Prilosec. There has been no nausea, eructation, vomiting, hematemesis, dysphagia, velopharyngeal insufficiency and odynophagia. No change in he frequency or intensity of symptoms. Has had no melena. Has had no . Discussed use of H2 antagonists and the possibility of trying to reduce the frequency of the use of any PPI inhibitors and try H2 antagonists to see if symptoms can be controlled with lease intensive therapy since a number of complications are associated with chronic prolonged use of PPI inhibitors. #4. Hx of asthma. Daily medications: Breo Ellipta. Uses bronchodilators several times per month. Night time exacerbations: 3-4 times monthly There has been no cough, congestion, or sputum production. No changes in exercise tolerance. Denies any fever or chills. Tolerating the medications without problems. The current status could be classified as mild persistent asthma. Using nebulizer Treatments: No.#5. Anxiety disorder currently taking lorazepam 1 mg t.i.d. As needed doing well. No interval complaints of any increase in anxiety or any type of depressive symptoms or suicidal ideation. Active Medication ListBreo Ellipta 0.1 MG/INH- 0.025 MG /INH (POWDER - INHALATION) One Puff DailyFlonase 0.0275 MG/SPRAY (SPRAY, METERED - NASAL) One [place] Each NostrilAmbien 10 MG (TABLET - ORAL) One Hs Prn For SleepPrilosec 40 MG (CAPSULE, DELAYED REL PELLETS - ORAL) One Daily For RefluxLorazepam 1 MG (TABLET - ORAL) One TidRosuvastatin 20 MG TABLET One Daily Vaccination and Kivtvkawvpxw7741-17 Ioh2997-69 Bmkeialuu8779-00 Covid Booster Sognutc7771-99 Covid 19 Misha [employer] Misha Surgical Nnoagei5133-00 Esophageal Wqgwhsnczi3721-49 Zhntrzbaaef9835-76 Esophageal Rrbxzbzuqt8213-00 Pilonidal Cyst Preventative Qdjfqte3611/17/2022 PSA 2.3906 LDCT / UPPER FPASURPTH23/21/2018 CT OLOXJG2606/01/2017 COLONOSCOPY (10 YEARS) ALBUMIN 4.5 G/DL N Social HistoryMarital Status: MLiving Status: With SpouseOccupational Exposure:Does not smoke cigarettes. Exercise: InfrequentlySexual Hx: Sexually ActiveFamily HistoryMother Living 73 years old some psychiatric disorder and Bone cancer Father Living 74 years old hx of nephrectomy and bladder cancer1 Sisters 1 Living COPD Sander Spann MD [address] [facility], [facility] [address], [place], [address], [facility] [employer] [facility] 11/22/2023 16:59:35 05/09/20 24 text/htm l Patient Name: Jairo Helms Of Service: April ( 05.09.2024 ): 1960 Age: 63 Chief Complaint: Addressed in HPI Problems or conditions discussed in the HPI were the only ones reviewed during the encounter.Only social and family history addressed in the HPI were reviewed during this encounter. Attendant(s): NoneConstitutional and Systemic Symptoms:none Medication Reconciliation: from medication list. Nrpaezqnicc41/14/2023: CTA of the thorax shows aortic root which measures 4.3 cm in diameter. Findings also suggestive some mild mitral valve prolapse. Ill-defined ground-glass opacities noted in the right upper lobe. Suggestion of possible adenocarcinoma spectrum lesion. Needs a follow-up lung scan in three months. 11/17/2022: Follow-up low-dose CT scan of the chest for right upper lobe abnormality shows almost complete resolution of this abnormality. Likely infectious in origin. A new 1 cm nodule is noted in the left upper lobe. Given the short interval this is likely infectious but it is recommended to have a repeat low-dose CT scan in three months to assess resolution. Unchanged dilatation of the aortic root up to 4.4 cm. History of Present Illness #1. Recently was in the emergency room at [facility] [place] and found to have a small cerebral aneurysm measuring approximately 5 mm. Is scheduled to see Neurosurgery as possible as well as invasive radiologist for possible coiling procedure. It is unlikely that his vertigo symptoms were related to this but does need to have it evaluated.: #2. Essential Hypertension: Stage: Stage I Interval Neurological Complaints no headaches, dizziness, weakness, visual changes, ataxia and aphasia. No shortness of breath, orthopnea or cardiovascular symptoms. No other symptoms related to end organ damage. Pressure has been under excellent control. Currently normal. No other end organ symptoms or findings. Therapy reviewed regarding management of hypertension and includes salt restriction. #3. Type II Hypercholesterolaemia: Currently taking medication and tolerating well. No interval complaints of any muscle pain or arthralgia. No significant liver changes with medications. Last lipid panel: fair control. Therapy reviewed regarding treatment of cholesterol management and include diet and Medication. #4. History of multiple lung nodules clinically stable. No interval complaints of any new problems. Is scheduled for another repeat CT scan of the chest pending the results of the coiling procedure.: Active Medication ListBreo Ellipta 0.1 MG/INH- 0.025 MG /INH (POWDER - INHALATION) One Puff DailyFlonase 0.0275 MG/SPRAY (SPRAY, METERED - NASAL) One [place] Each NostrilAmbien 10 MG (TABLET - ORAL) One Hs Prn For SleepPrilosec 40 MG (CAPSULE, DELAYED REL PELLETS - ORAL) One Daily For RefluxLorazepam 1 MG (TABLET - ORAL) One TidRosuvastatin 40 MG TABLET One Daily Vaccination and Immunization( ) 2024-01 INFLUENZA( ) 2021-03 COVID 19 MISHA & MISHA( ) 2024-01 COVID BOOSTER MODERNA( ) 2023-04 RSV Surgical Gzheujb8127-59 Esophageal Aljxawxqqp1934-32 Htirloisadl0865-67 Esophageal Ixrkkekwim8587-94 Pilonidal Cyst Preventative Testing(X) 11/17/2022 PSA 2.39 11/18/2023(X) 11/17/2022 LDCT 11/18/2023(X) 02/18/2022 Upper Endoscopy 02/18/2023( ) 12/09/2017 CT Thorax( ) 06/01/2017 Colonoscopy (10 Years) 06/01/2027( ) 02/10/2015 Albumin 4.5 G/DL N Social HistoryMarital Status: MLiving Status: With SpouseOccupational Exposure:Does not smoke cigarettes. Exercise: InfrequentlySexual Hx: Sexually ActiveFamily HistoryMother Living 73 years old some psychiatric disorder and Bone cancer Father 74 years old hx of nephrectomy and bladder cancer and CIDP1 Sisters 1 Living COPD Sander Spann MD [address] [place] [address], [facility] [address], [place], [address], [facility] [employer] [facility] 05/09/2024 17:30:10 10/11/19 25 text/htm l Patient Name: Jairo Helms Of Service: September ( 10.10.2024 ): 1960 Age: 64 Chief Complaint: Addressed in HPI Problems or conditions discussed in the HPI were the only ones reviewed during the encounter.Only social and family history addressed in the HPI were reviewed during this encounter. Attendant(s): NoneConstitutional and Systemic Symptoms:none Medication Reconciliation: from medication list. Yslcywsacrm32/29/2023: Follow-up low-dose CT scan of the chest for right upper lobe abnormality shows almost complete resolution of this abnormality. Likely infectious in origin. A new 1 cm nodule is noted in the left upper lobe. Given the short interval this is likely infectious but it is recommended to have a repeat low-dose CT scan in three months to assess resolution. Unchanged dilatation of the aortic root up to 4.4 cm. History of Present Illness In for a well patient check up. Last well patient evaluation was approximately one year. No interval complaints of any new major medical problems. No hx of any chest pain, shortness of breath, nausea, vomiting, diarrhea or constitutional symptoms.PSA already performedColonoscopy or Cologuard: not dueImmunizations Up To Date or refuses to takeNo Significant Change In Family HxFall Risk normalHearing normalVisual normalReviewed Smoking and Drug HistoryReviewed Immunization HistoryInstructed on importance of weight on diabetes, heart and other diseases aggravated by obesity.Instructed on importance of weight on diabetes, heart and other diseases aggravated by obesity. #1. Essential Hypertension: Stage: Stage I Interval Neurological Complaints no headaches, dizziness, weakness, visual changes, ataxia, aphasia and apraxia. No shortness of breath, orthopnea or cardiovascular symptoms. No other symptoms related to end organ damage. Pressure has been under excellent control. Currently normal. No other end organ symptoms or findings. Therapy reviewed regarding management of hypertension and includes salt restriction. #2. Type II Hypercholesterolaemia: Currently taking medication and tolerating well. No interval complaints of any muscle pain or arthralgia. No significant liver changes with medications. Last lipid panel: fair control. Therapy reviewed regarding treatment of cholesterol management and include diet and Rosuvastatin. #3. History of cerebellar aneurysm clinically stable. No interval complaints of any new problems. Has had embolization of the aneurysm. Recently had a cerebral angiogram which showed no progression or increase in size of any residual aneurysmal dilatation.: #4. Hx of esophageal reflux currently stable. Hx of Complications: none The severity, duration and intensity of symptoms have improved. Frequency: most meals Treatment consists medications taken on a regular basis. Current therapy includes Prilosec. There has been no nausea, eructation, vomiting, hematemesis, dysphagia, velopharyngeal insufficiency and odynophagia. No change in he frequency or intensity of symptoms. Has had no melena. Has had no . Discussed use of H2 antagonists NA. Wellness Evaluation PHQ-2 Score Last Two Weeks Last Two Weeks: 0: Not at all 1: Several Days 2: More than half 3: Almost Every day #1. Little interest or pleasure in doing things Score: 0#2. Feeling down, depressed, or hopeless Score: 0Score 0FAST Stage: 1 No functional decline Basic ADLS Ambulation Normal YesEating YesBed Transfer YesWalker NoCane NoFalls NoMultiple Falls NoBathing and Showering YesDressing YesFeeding YesFunctional Mobility YesPersonal Hygiene YesToilet Hygiene YesHome Safety Yes Instrumental ADLS House Work YesTaking Medications YesShopping YesTelephone YesUsing Technology YesTransportation YesPreparing Meals Yes Additional Topics Advanced Directives Not DiscussedLiving Will Not Discussed Social and Physical Activities Drinking History: NoneExercise 20 Minutes per Week: Yes, some of timeDifficulty Driving Car: NoSmoking History: NoOther Problems: None,Falling,Orthostatic,Trou ble Eating,Teeth Denture Problems,Problems using Telephone,Tiredness or fatigue No Living Will on File! Active Medication ListBreo Ellipta 0.1 MG/INH- 0.025 MG /INH (POWDER - INHALATION) One Puff DailyFlonase 0.0275 MG/SPRAY (SPRAY, METERED - NASAL) One [place] Each NostrilAmbien 10 MG (TABLET - ORAL) One Hs Prn For SleepPrilosec 40 MG (CAPSULE, DELAYED REL PELLETS - ORAL) One Daily For RefluxLorazepam 1 MG (TABLET - ORAL) One TidRosuvastatin 40 MG TABLET One Daily Vaccination and ImmunizationImmunizations and Vaccinations Discussed and Implemented if feasible In the Office. Else referred to pharmacies. ( ) 2024-01 INFLUENZA( ) 2021-03 COVID 19 MISHA & MISHA( ) 2024-01 COVID BOOSTER MODERNA( ) 2023-04 RSV Surgical [id number] Esophageal [id number] [id number] Esophageal [id number] Pilonidal Cyst Preventative TestingPreventative Testing Discussed and Scheduled if Acceptable to Patient (X) 11/17/2022 PSA 2.39 11/18/2023(X) 11/17/2022 LDCT 11/18/2023(X) 02/18/2022 Upper Endoscopy 02/18/2023( ) 12/09/2017 CT Thorax( ) 06/01/2017 Colonoscopy (10 Years) 06/01/2027( ) 02/10/2015 Albumin 4.5 G/DL N Social HistoryMarital Status: MLiving Status: With SpouseOccupational Exposure:Does not smoke cigarettes. Exercise: InfrequentlySexual Hx: Sexually ActiveFamily HistoryMother Living 73 years old some psychiatric disorder and Bone cancer Father 74 years old hx of nephrectomy and bladder cancer and CIDP1 Sisters 1 Living COPD Sander Spann MD [address] [facility] [facility] [address], [place], [address], [facility] - [employer] 10/10/2024 17:10:06
--- OUTSIDE RECORDS SUMMARY | 2024-10-12 10:32 | XMS_ITS | Encounter Summary ---
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 Gender Identity Not on file Sexual Orientation Not on file documented as of this encounter Plan of Treatment Not on file documented as of this encounter Procedures Procedure Name Priority Date/Time Associated Diagnosis Comments PULMONARY FUNCTION TEST (PFT) 02/22/2017 11:25 AM CDT documented in this encounter Results * PULMONARY FUNCTION TEST (PFT) (02/22/2017 11:25 AM CDT) Anatomical Region Laterality Modality PFT us Provider Scanning PFT ORDERABLES Final Result documented in this encounter Visit Diagnoses Not on filedocumented in this encounter Care Teams Shopfitter Relationship Specialty Start Date End Date Sander Spann MD PCP - General 10/08/16 04/07/19 Sander Spann MD [address] [place] [address] PCP - General Internal Medicine 06/02/21 documented as of this encounter
--- OUTSIDE RECORDS SUMMARY | 2024-10-12 10:32 | XMS_ITS | CONTINUITY OF CARE DOCUMENT ---
Author Name [email or web address] Address Unknown Organization [facility] Address [address] [facility] [address] [place] [address] Phone [phone] Care Team Providers Care Child Welfare Director Name Role Phone Spencer PENA, Nancy Unavailable RICHARD PENA, ROBBIN Unavailable [phone] ASIA PENA, DAR Unavailable INSURANCE PROVIDERS Payer name Policy type / Coverage type [place] red constitution party ID [facility] [id number]
--- OUTSIDE RECORDS SUMMARY | 2024-10-12 10:32 | XMS_ITS | Encounter Summary ---
Author Organization [facility] Address [address] [place] [address] Care Team Providers Care Senior Asp Net Developer Name Role Phone Sander Spann MD Primary Care Provider Sander Spann MD Primary Care Provider Encounter Details Date Type Department Care Team (Late st Contact Info) Description 01/18/2018 Community Orders [facility] EpicCare Link Sander Spann MD [address] [address] Social History Tobacco Use Types Packs/Day Years Used Date Smoking Tobacco: Never Assessed Sex and Gender Information Value Date Recorded Sex Assigned at Not on file 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
[2024-10-12 11:20] LABS: Basophils Absolute Auto 0.1 K/mm3 (0.0-0.1); Basophils Percent Auto 0.8 % (0.2-1.2); Eosinophils Absolute Auto 0.3 K/mm3 (0-0.3); Eosinophils Percent Auto 3.9 % (0-4.4); Hematocrit 41.8 % (42.0-52.0); Hemoglobin 14.3 g/dL (14.0-18.0); Immature Granulocyte Absolute 0.04 K/mm3 (0.00-0.031); Immature Granulocyte Percent A 0.6 % (0-0.5); Lymphocytes Absolute Auto 2.25 K/mm3 (0.9-3.2); Lymphocytes Percent Auto 34.1 % (18.3-44.2); Mean Corpuscular HGB Conc 34.2 g/dl (32-36); Mean Corpuscular Hemoglobin 30.2 pg (26-34); Mean Corpuscular Volume 88.4 fl (80-100); Mean Platelet Volume 8.9 fl (7.4-10.4); Monocytes Absolute Auto 0.7 K/mm3 (0.1-0.6); Monocytes Percent Auto 10.2 % (2.6-8.5); Neutrophils Absolute Auto 3.3 K/mm3 (1.3-6.7); Neutrophils Percent Auto 50.4 % (45.5-73.1); Platelet Count Result 275 k/mm3 (150-375); Red Blood Count 4.73 M/mm3 (4.6-6.20); Red Cell Distribution Width 12.6 % (11.5-14.5); White Blood Count 6.6 K/mm3 (4.5-10.0)
[2024-10-12 11:33] LABS: Alanine Aminotransferase 32 U/L (6-50); Albumin Level 4.4 g/dL (3.5-5.1); Alkaline Phosphatase 57 U/L (38-126); Anion Gap 9 mmol/L (4-12); Aspartate Amino Transferase 30 U/L (17-59); Bilirubin,Total 0.6 mg/dL (0.2-1.3); Blood Urea Nitrogen 16 mg/dL (9-20); Calcium 9.1 mg/dL (8.4-10.2); Carbon Dioxide 26 mmol/L (22-30); Chloride 107 mmol/L (98-107); Cholesterol 151 mg/dL (0-200); Estimated Glomerular Filt Rate > 60; Glucose 93 mg/dL (65-110); HDL Direct 45 mg/dL; Magnesium 1.9 mg/dL (1.6-2.3); Sodium 142 mmol/L (137-145); Triglycerides 186 mg/dL (<150)
[2024-10-12 11:45] LABS: LDL Cholesterol Direct 63 mg/dL
[2024-10-12 11:48] LABS: Free T4 Free Thyroxine 0.89 ng/dL (0.78-2.19)
[2024-10-12 12:05] LABS: Prostate Specific Antigen 3.4 ng/mL (< OR = 4.0); Thyroid Stimulating Hormone 0.583 uIU/mL (0.465-4.680)
== END 2024-10-12 10:27 | disposition home or self-care (01) ==
LOC: ANHLAB 10:30
PROVIDERS: PCP Internal Medicine; Visit Provider Internal Medicine
DX: K21.9 Gastro-esophageal reflux disease without esophagitis (principal); I10 Essential (primary) hypertension; N42.9 Disorder of prostate, unspecified
CPT/HCPCS: 36415; 80053; 80061; 82607; 83735; 84153; 84439; 84443; 85025